=== PATIENT | male | born 1930 | race Caucasian/White ===

== ENCOUNTER 2016-07-04 07:18 | Inpatient (IN) | payer MEDICARE, BC ==
[~2016-07-04] VITALS: Ht 167.6 cm; Wt 68.2 kg
--- NOTE | ~2016-07-04 | CON ---
PATIENT'S NAME: IVETTE LOYA [facility] AGE: 85 Y [address] ROOM: [id number] [place], [place] [address] LOCATION: GPCU ADMIT DATE: 07/04/2016 Consultation DISCHARGE DATE: FAMILY PHYSICIAN: Denny Jackman MD ATTENDING PHYSICIAN: HYUN OCAMPO DATE OF CONSULTATION: 07/05/2016 REFERRING PHYSICIAN: Dr. Ocampo. REASON FOR VISIT: Wound Care visit to evaluate and treat a left groin rash. HISTORY OF PRESENT ILLNESS: This is an 85-year-old male patient who was admitted to [facility] after an elective aortogram with bilateral lower extremity runoffs. The patient had an arterial duplex and ABIs on May 31, 2016 with abnormal results. He saw his plate painter, Dr. Fletcher, on June 28. The patient also had an arteriogram with runoff which showed non-reconstructible severe peripheral vascular disease to the bilateral lower extremities. Dr. Knox was consulted and the patient underwent a left jutxb-ixn-lplu amputation today. The patient has a history of type 2 diabetes mellitus. His A1c is 8.9%. He does not wear diabetic inserts. He has a history of psoriasis and has been receiving every other month acupuncture treatments by his chiropractor to his buttocks. His reports that has significantly helped the psoriasis. He intermittently uses triamcinolone cream to this site. The patient admits to buttocks pruritus. His reports on and off redness to his groin folds. No treatment noted at home. She is not sure how long his groins have been red. The patient's heel has a linear open area and no etiology is noted. is unsure how long he has had that area. No treatment has been applied to the site. The patient is a nonsmoker. He denies intermittent claudication symptoms. He denies chest pain or shortness of breath. He denies nausea, vomiting, or diarrhea. He is complaining of severe 10/10 left leg phantom pain. PAST MEDICAL HISTORY: Severe peripheral vascular disease; type 2 diabetes mellitus; coronary artery disease; CVA; prostate cancer, receiving chemo by Dr. Beck; DVT to the left lower extremity; short-term memory loss; essential hypertension; hypothyroidism; nephrolithiasis; history of polio; urethral stricture, status post stent placement. PAST SURGICAL HISTORY: PATIENT'S NAME: IVETTE LOYA [facility] AGE: 85 Y [address] ROOM: [id number] [place], [place] [address] LOCATION: GPCU ADMIT DATE: 07/04/2016 Consultation DISCHARGE DATE: FAMILY PHYSICIAN: Denny Jackman MD ATTENDING PHYSICIAN: HYUN OCAMPO Coronary artery bypass grafting in 2010, ureteral stent, cardiac surgery, torn meniscus repair, and wrist fracture with repair. FAMILY HISTORY: The patient's mom suffered from diabetes. SOCIAL HISTORY: The patient lives with his in [place], [place]. He denies tobacco, alcohol, or illicit drug use. ALLERGIES: NO KNOWN MEDICATION ALLERGIES. CURRENT MEDICATIONS: Please refer to the medication administration record. REVIEW OF SYSTEMS: A 10-point review of systems was completed to the best of my ability and all are negative except as mentioned above in the HPI. PHYSICAL EXAMINATION: VITAL SIGNS: Temperature 98.2, pulse 59, respirations 16, blood pressure 174/70, and pulse oximetry 93%. Height 5 feet 6 inches and weight 75.9 kg. GENERAL: The patient is drowsy and complaining of pain after surgery. Alert, pale appearing. Hard of hearing. Oriented but a poor historian. HEENT: Head: Normocephalic, atraumatic. Anicteric sclerae. Oral mucosa is pink and moist. NECK: Supple. RESPIRATORY: Even and unlabored. CARDIOVASCULAR: Regular rate and rhythm. GASTROINTESTINAL: Soft and nontender. No organomegaly appreciated. EXTREMITIES: +1 pedal pulses at best to the right lower extremity. No edema noted. Capillary refill intact. Extremity is warm to touch. SKIN: Fading red rash with skin peeling to left groin. Appears dry in nature. No pustules noted. Right groin intact. Superficial pin point area to gluteal crease that is moist and pink in color. Periwound is intact. Scant serous exudate noted. No pressure ulcers noted. Scattered psoriasis plaques to buttocks. Mild in nature. Right second and third dorsal toes have small intact brown scabs. Periwound intact. Scabs are adherent to the wound bed. Right medial heel has a linear open area that measures 0.2 cm width x 2.5 cm length x 0.3 cm depth. It is difficult to visualize the wound bed but it does appear moist pink. Periwound is dry but intact. Tender to touch. No drainage noted. No evidence of deep tissue injury or ecchymosis noted. No slough to wound bed. Bilateral elbows intact. PATIENT'S NAME: IVETTE LOYA [facility] AGE: 85 Y [address] ROOM: [place] [address] LOCATION: GPCU ADMIT DATE: 07/04/2016 Consultation DISCHARGE DATE: FAMILY PHYSICIAN: Denny Jackman MD ATTENDING PHYSICIAN: HYUN OCAMPO LABORATORY DATA: White blood cell count 10.0, hemoglobin 10.2, hematocrit 32.5, platelets 185. Sodium 133, potassium 4.5, chloride 99, bicarb 26, BUN 20, creatinine 0.9, glucose 186, and hemoglobin A1c 8.9. TSH 0.671. Magnesium 1.7. ASSESSMENT AND PLAN: Again, this is an 85-year-old male patient who was admitted to [facility] with severe peripheral vascular disease. He has underwent a left AKA by Dr. Knox today. Wound Care was consulted to evaluate and treat a left groin rash. 1. Fading fungal left groin rash. Area appears to be healing. Slight skin rolling with no active pustules. We will cover the site with nystatin b.i.d. x10 days. I instructed nursing to keep area clean and dry. The patient has Johnson catheter to help with moisture control. Discussed prevention options with . 2. Gluteal crease dermal ulcer. This is not a pressure ulcer and appears to be due to moisture trapping. I will have nursing apply Aloe Sandy q.i.d. and p.r.n. incontinence as well as strict pressure redistribution measures. The patient is to be turned in bed every 2 hours. Discussed pressure ulcer prevention with . 3. Psoriasis to buttocks. Area appears mild. The patient normally receives acupuncture treatments and uses triamcinolone cream at home. We will restart triamcinolone 0.1% cream apply b.i.d. to site. 4. Right second and third dorsal toe scabs. We will leave scabs intact due to the patient's history of severe peripheral vascular disease and diabetes. These areas may be related to pressure as they are over the bony phalangeal joints. I did discuss orthotic footwear with the patient's . 5. Right medial heel linear wound. This does not have the typical presentation of a pressure ulcer or a deep tissue injury. The patient appears to have significant xerosis in this area. This area most likely started out as a crack and then opened. I will instruct nursing to apply a thick layer of Aloe Sandy b.i.d. to right heel and use a Podus footdrop boots to elevate his heel to help with pain and pressure ulcer formation. 6. Severe peripheral vascular disease. 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 The patient is to continue on Plavix and Zocor. 7. Type 2 diabetes mellitus. The patient is on sliding scale insulin. Hospitalist is managing. 8. Coronary artery disease. The patient is status post CABG. Normally sees Dr. Fletcher. Home medications have been restarted. I would like to thank Dr. Ocampo for this consultation. PATIENT'S NAME: IVETTE LOYA [facility] AGE: 85 Y [address] ROOM: [place] [address] [facility] ADMIT DATE: 07/04/2016 Consultation DISCHARGE DATE: FAMILY PHYSICIAN: Denny Jackman MD ATTENDING PHYSICIAN: HYUN OCAMPO KAVITA CURRY APRN FOR MD ROSALIA STINSON/reshma /[id number] d: 07/05/162055 t: 07/21/16 1013, CONSULTATION REPORT
--- NOTE | ~2016-07-04 | DS ---
PATIENT'S NAME: IVETTE LOYA [facility] AGE: 85 Y [address] ROOM: [place] [address] LOC[address]: [facility] ADMIT DATE: 07/04/2016 Discharge Summary DISCHARGE DATE: 07/17/2016 FAMILY PHYSICIAN: Denny Jackman MD ATTENDING PHYSICIAN: Darío Almaraz PRIMARY DIAGNOSES: 1. Ischemic left leg with ischemic ulcer and gangrenous change, status post left leg pclvb-[id number]-[id number] amputation. 2. Paroxysmal atrial fibrillation. 3. Long-term anticoagulation. 4. Acute encephalopathy with postoperative delirium. 5. Dementia, vascular type. 6. Diabetes mellitus type 2. 7. Anemia of chronic disease. 8. Essential hypertension. 9. Coronary artery disease. 10. Acute blood loss anemia. 11. Chronic constipation. OPERATIONS OR PROCEDURES: 1. Left leg AKA was performed by Dr. Knox on 07/05/2016. 2. Echocardiogram was obtained on 07/04/2016 demonstrating a preserved ejection fraction of 55%. HISTORY OF PRESENTING ILLNESS/REASON FOR ADMISSION: Please refer to the H and P dictated on 07/04/2016. HOSPITAL COURSE: The patient was admitted to the hospital as noted above with a presumptive diagnosis of ischemic left leg. He was determined to have critical ischemia and a gangrenous ulcer. Operative intervention was recommended by Dr. Knox. This was performed on 07/05/2016 as outlined above. Postoperatively, he developed acute encephalopathy and delirium. This was felt to be multifactorial. His medication regimen was streamlined, but he did require some atypical antipsychotic treatment for management of extreme agitation and aggressive outbursts. Eventually these subsided. He continued to receive supportive cares. His oral intake was poor, but he continued to receive some careful IV fluid hydration therapy. Blood sugars were managed with sliding scale insulin and his oral hypoglycemic regimen was held. His heart rates were suboptimally controlled and his medical regimen was PATIENT'S NAME: IVETTE LOYA [facility] AGE: 85 Y [address] ROOM: [place] [address] LOCATION: [facility] ADMIT DATE: 07/04/2016 Discharge Summary DISCHARGE DATE: 07/17/2016 FAMILY PHYSICIAN: Denny Jackman MD ATTENDING PHYSICIAN: Darío Almaraz adjusted. He was restarted on anticoagulation therapy and tolerated that well. Postoperative anemia, remained stable. He received physical therapy and occupational therapy for strengthening rehabilitation, but his clinical progress was slow. It was felt that he would not be able to return home and not able to tolerate an inpatient rehab setting because of his underlying dementia and slow progress. It was recommended that he pursue a longterm care. Eventually, arrangements were made for him to transferred to [facility] in [place]. DISCHARGE INSTRUCTIONS: DIET: Diabetic prudent 2000 calorie per day as tolerated. ACTIVITY: As tolerated. MEDICATIONS: 1. Acarbose 25 mg p.o. b.i.d. and 50 mg p.o. q. noon. 2. Acetaminophen 650 mg p.o. q.6 hours. 3. Vitamin C 500 mg p.o. b.i.d. 4. Atenolol 12.5 mg p.o. b.i.d. 5. Calcium carbonate with vitamin D 500 mg p.o. b.i.d. 6. Plavix 75 mg p.o. daily. 7. Colace 100 mg p.o. b.i.d. 8. Iron 325 mg p.o. daily. 9. Insulin NovoLog per sliding scale with meals. 10. Levemir insulin 20 units subcu at bedtime. 11. Levothyroxine 100 mcg p.o. daily. 12. Lisinopril 20 mg p.o. daily. 13. Mag oxide 400 mg p.o. b.i.d. 14. Multivitamin daily. 15. Fish oil 1000 mg two caps p.o. daily. 16. Protonix 20 mg p.o. at bedtime. 17. Seroquel 6.25 mg p.o. q.a.m. and 12.5 mg p.o. q.p.m. 18. Simvastatin 40 mg p.o. at bedtime. 19. Triamcinolone cream applied topically b.i.d. 20. Coumadin 2 mg p.o. daily. 21. [place] 5/325 one tablet p.o. q.2 hours p.r.n. breakthrough pain. 22. Dulcolax 10 mg MO daily p.r.n. 23. Nitroglycerin 0.4 mg sublingually p.r.n. FOLLOWUP: He will have follow up with Dr. Ross Fletcher, treasury director in 2 weeks in [place]. He will have follow up with Dr. Knox in 2 weeks in [place]. Ongoing follow up with Dr. Denny Jackman at the [facility]. PATIENT'S NAME: IVETTE LOYA [facility] AGE: 85 Y [address] ROOM: [place] [address] LOCATION: [facility] ADMIT DATE: 07/04/2016 Discharge Summary DISCHARGE DATE: 07/17/2016 FAMILY PHYSICIAN: Denny Jackman MD ATTENDING PHYSICIAN: Darío Almaraz CONDITION ON DISCHARGE: Fair. Total time spent on discharge process is 45 minutes. MD BRIT MEMBRENO/modl /[id number] d: 07/18/16 1127 t: 07/18/16 1724, DISCHARGE SUMMARY
--- NOTE | ~2016-07-04 | OR ---
PATIENT'S NAME: IVETTE LOYA [facility] AGE: 85 Y [address] ROOM: [place] [address] LOCATION: [facility] ADMIT DATE: 07/04/2016 OR/Procedure Report DISCHARGE DATE: FAMILY PHYSICIAN: Denny Jackman MD ATTENDING PHYSICIAN: HYUN OCAMPO SURGEON: Dequan Rizo MD GLASS ENAMEL MIXER: DATE OF PROCEDURE: 07/05/2016 PREOPERATIVE DIAGNOSIS: Ischemic left leg. POSTOPERATIVE DIAGNOSIS: Ischemic left leg. PROCEDURE PERFORMED: Left above-knee amputation. FACILITIES CUSTODIAN: NILE Anaya ANESTHESIA: General. ESTIMATED FLUID LOSS: 700 mL. OPERATIVE FINDINGS: Good, clean, healthy flaps at the end of the case. DESCRIPTION OF PROCEDURE: The patient was brought to the operating room, placed supine on the operating table, and prepped and draped in a sterile manner. Preoperative time-out was performed. The patient had placement of a Johnson catheter as well as a tourniquet for hemostasis. We made a standard fishmouth incision 3 fingerbreadths above the patella. We transected all the muscle and soft tissue using Bovie cautery. All blood vessels were suture ligated with 2-0 or 3-0 Vicryl suture ligatures. We identified the neurovascular bundle, the superficial femoral artery, and superficial femoral vein. Those were suture ligated with 2-0 Vicryl. We then removed the soft tissue from the bone using a rongeur. We then transected the bone using a reticulating saw. We copiously irrigated the wound. We took our tourniquet down and achieved hemostasis using Bovie cautery and any further suture ligations that we required. We then reapproximated the anterior and posterior flaps using 2-0 Vicryl. The skin was then closed with elizabeth. The patient tolerated the procedure well and was transferred to the recovery room and then back to the floor. DEQUAN RIZO MD PATIENT'S NAME: IVETTE LOYA [facility] AGE: 85 Y [address] ROOM: [place] [address] LOCATION: [facility] ADMIT DATE: 07/04/2016 OR/Procedure Report DISCHARGE DATE: FAMILY PHYSICIAN: Denny Jackman MD ATTENDING PHYSICIAN: HYUN OCAMPO/reshma /[id number] d: 07/05/16 1117 t: 07/09/16 1302, OPERATIVE SUMMARY
--- NOTE | ~2016-07-04 | HP ---
PATIENT'S NAME: IVETTE LOYA [facility] AGE: 85 Y [address] ROOM: [id number] [place], [place] [address] LOCATION: GPCU ADMIT DATE: 07/04/2016 History & Physical DISCHARGE DATE: FAMILY PHYSICIAN: Denny Jackman MD ATTENDING PHYSICIAN: HYUN OCAMPO CHIEF COMPLAINT: Bilateral lower extremity tenderness and decreased sensation, more on the left than the right. HISTORY OF PRESENT ILLNESS: This is an 85-year-old male who says that last year in December 2015 he accidentally injured his left big toe when he was walking out from the [employer] where he almost missed a step and hit his left big toe against the ground. He did not go see any physician for that. He has noticed that his left big toe has become tender and sometimes swollen and is becoming discolored. This happened last year, and he did not look for any medical attention, and he was recently seen by Dr. Fletcher for office followup that was on June 28, 2016, for his peripheral vascular disease. The patient was scheduled for an elective abdominal aortogram with runoffs today on July 04, 2016. The official report is pending, and Dr. Knox from Vascular Surgery has already been consulted and that the plan will be to have a left above-knee amputation tomorrow. Other than that, upon my further interview, the patient denies any chest pain, shortness of breath, cough, palpitation, fever, chills, presyncope, syncope, diaphoresis, nausea, vomiting, abdominal pain, diarrhea, constipation, or any other symptoms. He also denies any recent sick contact or any recent illness. He did mention that his bilateral lower extremities are becoming more tender to touch and also decreasing in sensation. The left lower extremity is worse than the right. He also complained of some cold sensation in both bilateral lower extremities. At baseline, he is independent of all activities of daily living, and his METS score is more than 4 at baseline. REVIEW OF SYSTEMS: As mentioned in the history of present illness. All other systems review negative except for those mentioned in history of present illness. PAST MEDICAL HISTORY: 1. Coronary artery disease, status post bypass surgery back in 2000 in [place]. 2. Peripheral vascular disease. 3. Diabetes mellitus type 2. 4. History of cerebrovascular accident back in 2004 without any neurological deficit. PATIENT'S NAME: IVETTE LOYA [facility] AGE: 85 Y [address] ROOM: [id number] [place], [place] [address] LOCATION: [facility] ADMIT DATE: 07/04/2016 History & Physical DISCHARGE DATE: FAMILY PHYSICIAN: Denny Jackman MD ATTENDING PHYSICIAN: HYUN OCAMPO 5. History of prostate cancer, followed by Dr. Beck. 6. History of DVT of the left leg back in 1986. 7. 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 8. Hypertension. 9. Hypothyroidism. 10. History of polio. 11. History of a urethral stricture with status post stent placement in the past. 12. History of kidney stone in the past. ALLERGIES: NO KNOWN DRUG ALLERGIES ACCORDING TO THE PATIENT AND THE PATIENT'S . HOME MEDICATIONS: 1. Acarbose 25 mg p.o. b.i.d. 2. Acarbose 50 mg p.o. at noon. 3. Atenolol 25 mg p.o. b.i.d. 4. Plavix 75 mg p.o. daily. 5. Glipizide 20 mg p.o. b.i.d. 6. Levothyroxine 100 mcg p.o. daily before breakfast. 7. Lisinopril 20 mg p.o. daily. 8. Magnesium oxide 400 mg p.o. b.i.d. 9. Metformin 500 mg p.o. daily in the morning. 10. Metformin 1000 mg p.o. b.i.d. 11. Multivitamin 1 tablet p.o. daily. 12. Fish oil 2000 mg p.o. daily. 13. Omeprazole 20 mg p.o. daily at bedtime. 14. Simvastatin 40 mg p.o. at bedtime. SOCIAL HISTORY: The patient denies any alcohol or illegal drug or cigarette use. FAMILY HISTORY: Both parents from old age. The patient could not remember from what cause. PAST SURGICAL HISTORY: 1. Status post bypass surgery in the past. 2. Status post ureteral stent placement in the past. 3. Status post cataract surgery in the right eye. 4. Status post fracture with wrist repair in the past. 5. Status post torn meniscus in the knee in the past. PHYSICAL EXAMINATION: VITAL SIGNS: At the time of my dictation, temperature 98.6, heart rate 63, PATIENT'S NAME: IVETTE LOYA [facility] AGE: 85 Y [address] ROOM: [id number] [place], [place] [address] LOCATION: [facility] ADMIT DATE: 07/04/2016 History & Physical DISCHARGE DATE: FAMILY PHYSICIAN: Denny Jackman MD ATTENDING PHYSICIAN: HYUN OCAMPO respirations 18, blood pressure 115/52, saturation 98% on room air. Pain 2/10 in bilateral lower extremities in the feet. GENERAL APPEARANCE: Alert and oriented x3, in no acute distress. HEENT: Pupils are equally round and reactive to light. Anicteric sclerae. Extraocular muscles are intact. Nasal turbinates are normal bilaterally. Moist oral mucosa. No oral thrush. NECK: No JVD. No cervical lymphadenopathy. CARDIOVASCULAR: Regular rate and rhythm. Normal S1, S2. No murmur. No rubs, no gallops. RESPIRATORY: Clear to auscultation. Chest wall nontender to palpation. ABDOMEN: Soft, nontender, nondistended, normal bowel sounds, no hepatosplenomegaly. EXTREMITIES: No edema in upper or lower extremities. On the left foot, he has a necrotic and a gangrene looking big toe. On the right foot, he has a small superficial ulcer that do not look infected in the second and third toes. No active purulent drainage. Dorsalis pedis pulses and posterior tibialis pulses bilaterally are very weak almost undetectable on Doppler. No cyanosis. The bilateral feet somewhat cold to touch. They are pale in color, but they are not cyanotic. NEUROLOGIC: Sensation is somewhat a little bit decreased in both legs. Otherwise, nonfocal. SKIN: As mentioned in the extremity section. MUSCULOSKELETAL: Range of motion intact. LABORATORY DATA: White blood cell 12.4, hemoglobin 10.5, hematocrit 32.3, MCV 89, platelet 192. Glucose 225, BUN 20, creatinine 1.0, sodium 136, potassium 4.2, chloride 99, CO2 of 28, calcium 8.4, GFR more than 60. A1c 8.9. INR 1.1. TSH 0.671. IMAGING STUDIES: Chest x-ray is currently being performed. Saturation 98% on room air. Lungs are clear to auscultation. Official reading is pending. EKG: EKG on June 28, 2016, shows sinus rhythm, heart rate of 66 beats per minute without any acute ischemic finding. ASSESSMENT AND PLAN: 1. Severe peripheral vascular disease in bilateral lower extremities: The patient will be undergoing left above the knee amputation tomorrow. N.p.o. after midnight. IV fluids for hydration after midnight. Pain control with IV morphine p.r.n. Antibiotics per Vascular Surgery, currently on cefazolin. Further plan depends on clinical course. Follow up with Vascular Surgery tomorrow after surgery. The patient was already seen by camera systems engineer, Dr. Fletcher, in the office back on June 28, 2016. EKG was performed which showed sinus rhythm without any acute PATIENT'S NAME: IVETTE LOYA [facility] AGE: 85 Y [address] ROOM: [address] [address] LOCATION: GPCU ADMIT DATE: 07/04/2016 History & Physical DISCHARGE DATE: FAMILY PHYSICIAN: Denny Jackman MD ATTENDING PHYSICIAN: HYUN OCAMPO ischemic changes. The patient is doing well. The patient does not have any contraindication for surgery. The patient's METS score is more than 4. He does not currently have any active cardiac condition that will prevent him from undergoing surgery. Chest x-ray reading is pending. On his physical examination, the patient's lungs are clear. He denies any dyspnea and saturating at 98% on room air. Blood type and screen. 2. Regarding his history of coronary artery disease, status post bypass surgery in the past: Doing well. No chest pain. No acute ischemia on EKG. Currently, the patient is on aspirin, full dose, we will continue that. Regarding Plavix, will be deferred to Vascular Surgery. I spoke to Sangita and for now continue aspirin full dose, and tomorrow after surgery, Vascular Surgery can decide about continuing both or just use aspirin or just use Plavix. 3. Regarding his diabetes type 2: We will check A1c and also hold metformin and hold the acarbose and also hold glipizide. In the hospital, we will continue with the insulin sliding scale low dose a.c. h.s. aspart and titrate as necessary. When he becomes n.p.o. overnight, we will switch him to subcutaneous regular insulin q.6 hours low dose. 4. Regarding his coronary artery disease, status post CABG in 2000: No active issue. Continue current medication which includes aspirin full dose and beta-kolton atenolol 25 mg p.o. b.i.d. with holding parameters and Plavix as mentioned before will be readdressed by Vascular Surgery tomorrow after surgery. Continue lisinopril 20 mg p.o. daily and Zocor 40 mg p.o. daily. 5. History of ischemic cerebrovascular accident back in 2004: No active issue. No neurological deficit. 6. Hypertension: Continue atenolol with holding parameters. Currently, well controlled. 7. Hypothyroidism: We will check a TSH. We will continue the home dose of levothyroxine 100 mcg p.o. daily and titrate depending on the TSH level. 8. Deep venous thrombosis prophylaxis: We will start the patient on heparin subcu 5000 units t.i.d. 9. The patient can have a diabetic diet and n.p.o. after midnight. 10. Further plan depends on clinical course. Time spent on the day of admission 35 minutes including chart review, examining the patient, interviewing the patient, addressing all the questions and concerns that the patient had, and going over the plan of care with the patient and the patient's . HYUN OCAMPO MD CC/modl PATIENT'S NAME: IVETTE LOYA [facility] AGE: 85 Y [address] ROOM: [place] [address] LOCATION: [facility] ADMIT DATE: 07/04/2016 History & Physical DISCHARGE DATE: FAMILY PHYSICIAN: Denny Jackman MD ATTENDING PHYSICIAN: HYUN OCAMPO /[id number] D: [id number] T: 450 HISTORY & PHYSICAL
--- NOTE | ~2016-07-04 | CON ---
PATIENT'S NAME: IVETTE LOYA [facility] AGE: 85 Y [address] ROOM: [place] [address] LOCATION: [facility] ADMIT DATE: 07/04/2016 Consultation DISCHARGE DATE: FAMILY PHYSICIAN: Denny Jackman MD ATTENDING PHYSICIAN: HYUN OCAMPO DATE OF CONSULTATION: 07/08/2016 PALLIATIVE CARE CONSULTATION LOCATION: Room [facility], [facility]. REFERRING PHYSICIAN: Candy Huang MD REASON FOR CONSULTATION: This is a Palliative Care referral for goals of care and patient and family support. HISTORY OF PRESENT ILLNESS: This 85-year-old frail male was admitted on 07/04/2016 with a necrotic left toe and severe peripheral vascular disease. In December 2015, he accidentally injured his left big toe while walking out of [employer], he missed the step and injured his left big toe. He did not go see a physician, and toe become tender and more swollen. He presented with a necrotic left great toe and was seen by Dr. Knox, had a left ekdem-eos-alrm amputation done and has become more delirious. No bowel movements in 7 days, and decreased appetite. Not oriented to time, place, or date. Does recognize his , Amaris. No nausea or vomiting. Does complain of some shortness of breath. States he does not have pain, but when the patient is repositioned screams out in pain in the left stump. Appetite, he has been refusing food and all medications this morning. Has a productive cough of grayish yellow phlegm, large amount. No nausea or vomiting noted. PAST MEDICAL HISTORY: 1. Coronary artery disease status post bypass surgery in 2000 in [place]. 2. Severe peripheral vascular disease. 3. Diabetes mellitus, type 2. 4. History of a cardiovascular accident in 2004 without any neurological deficits. 5. History of prostate cancer followed by Dr. Beck and has been taking some shots in his abdomen per his for his prostate cancer. 6. History of DVT, left leg back in 1986. PATIENT'S NAME: IVETTE LOYA [facility] AGE: 85 Y [address] ROOM: [place] [address] LOCATION: [facility] ADMIT DATE: 07/04/2016 Consultation DISCHARGE DATE: FAMILY PHYSICIAN: Denny Jackman MD ATTENDING PHYSICIAN: HYUN OCAMPO 7. 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 8. Mild dementia. 9. Hypertension. 10. Hypothyroidism. 11. History of polio. 12. History of urethral stricture status post stent placement in the past. 13. History of kidney stone in the past. ALLERGIES: NO KNOWN ALLERGIES. CURRENT MEDICATIONS: 1. Fish oil 2000 mg daily. 2. Synthroid 100 mcg daily in the a.m. 3. Mag-Ox 400 mg b.i.d. 4. Plavix 75 mg daily. 5. Precose 25 mg b.i.d. and 50 mg at noon. 6. Zestril 20 mg daily. 7. Protonix 20 mg at bedtime. 8. Seroquel 25 mg at bedtime. 9. Tenormin 25 mg b.i.d. 10. Multivitamin 1 tablet daily. 11. Zocor 40 mg daily. 12. Heparin 5000 units subcutaneous t.i.d. 13. Levemir 10 units subcutaneous at bedtime. 14. NovoLog moderate sliding scale. 15. Mycostatin ointment b.i.d. to groin. 16. Triacet 0.1% cream b.i.d. to affected area. 17. P.r.n. medications: Haldol 1 mg IM every 6 hours. 18. Morphine 2 IV every 5 minutes p.r.n. 19. Zofran 4 mg IV every 6 hours. 20. Dilaudid 0.5 to 1 mg every 6 hours. 21. Benadryl 25 mg p.o. at bedtime p.r.n. sleeplessness. 22. Colace 100 mg b.i.d. p.r.n. 23. Hazelton 5/325, 1 to 2 tablets every 4 hours p.r.n. 24. Tylenol 650 mg every 4 hours p.r.n. 25. Nitrostat 0.4 mg sublingual p.r.n. chest pain. FAMILY HISTORY: Parents at old age, unknown cause. PAST SURGICAL HISTORY: 1. Coronary artery bypass graft. 2. Urethral stent. 3. Cardiac surgery. PATIENT'S NAME: IVETTE LOYA [facility] AGE: 85 Y [address] ROOM: [place] [id number] LOCATION: [facility] ADMIT DATE: 07/04/2016 Consultation DISCHARGE DATE: FAMILY PHYSICIAN: Denny Jackman MD ATTENDING PHYSICIAN: HYUN OCAMPO 4. Fracture of wrist repair. 5. Torn meniscus repair. 6. Left oytrq-own-codo amputation. REVIEW OF SYSTEMS: Review of systems was done and is negative except as mentioned in the HPI and listed below: GASTROINTESTINAL: Last bowel movement was on 07/03/2016. Suppository was given yesterday with little or no results. Appetite is poor, taking only bites. GENITOURINARY: He is incontinent. PSYCHIATRY: He does have a history of mild dementia, forgetfulness. Had been declining over the last few months per his . She had to help him get dressed, but he was able to still drive a car and walk and feed himself. Positive for fatigue and loss of energy. PHYSICAL EXAMINATION: GENERAL APPEARANCE: This is an 85-year-old frail male, confused, and lying in bed. VITAL SIGNS: Temperature 98.5, pulse is 86, respirations 16, blood pressure 134/65, and O2 sats 96%. He is 5 foot 6 inches and weighs 167 pounds with a BMI of 27.0. SKIN: Warm and dry. Color pale. Reddened rash in the groin area. HEENT: Head; normocephalic and atraumatic. Sclerae are nonicteric. Conjunctivae are pale, pink. Mouth is pink and dry. RESPIRATORY: Clear to auscultation. Rhonchi bilaterally. Breath sounds even and regular. Coughing up thick phlegm x2, large amount. CARDIAC: S1 and S2 without murmurs or bruits. No lower extremity edema. ABDOMEN: Soft. Positive bowel tones. No hepatosplenomegaly. NEUROLOGIC: Confused to date, time, and place. Does respond to commands. MUSCULOSKELETAL: Left nfffc-msp-nvdk amputation, elizabeth are intact. Incision has some erythema, well healing. No exudate. PALLIATIVE PERFORMANCE SCALE: He is about 30% bed bound, unable to do any activity. Total care, intake is minimal to sips, and level of consciousness is confused and irritable. LABORATORY DATA: Sodium 132, potassium 4.2, BUN 21, creatinine 0.9, and blood sugar is 230. GFR is 60. ProBNP is 7041. HBA1c is 8.9. GFR is greater than 60. White count is 13.8, hemoglobin 10.2, hematocrit 32.3, and 334,000 platelets. IMPRESSION: 1. Pain in the left jahxj-itn-pcgf amputation. 2. Constipation. 3. Dysphagia. PATIENT'S NAME: IVETTE LOYA [facility] AGE: 85 Y [address] ROOM: [place] [address] LOCATION: [facility] ADMIT DATE: 07/04/2016 Consultation DISCHARGE DATE: FAMILY PHYSICIAN: Denny Jackman MD ATTENDING PHYSICIAN: HYUN OCAMPO 4. Delirium/dementia. PLAN: 1. Discussion of chronic condition. Met with Amaris, discussed the patient's overall condition. More confusion after the amputation, not eating. Not taking his medicines. has a fair understanding of the patient's overall condition. Notes, she cannot care for him. Notes that patient needs to have symptoms more controlled before he can go back to the jail in [place]. Discussion of goals:. a. Help with confusion. b. Control pain. c. Help with constipation. d. Try to get the patient better to get back to jail closer to home. lives two blocks from jail. 2. Code status and advance directives: The patient is currently a full code. Does have a copy of advance directives naming and her three sons as power of attorneys. 3. Discussion of benefits, burdens with coding patient with dementia and elderly, and overall condition. has talked with her son on wishes. The patient's living will states he would not want to be kept alive on life-sustaining treatment and states they have both discussed this in the past. They would like to continue with aggressive treatments but not do the CPR and restart the heart or be put on a ventilator if condition declines. 4. Discussion of artificial nutrition and with patient's confusion may not be a benefit to patient, may pull out tubes in his confused state if attempted to use a Dobbhoff. Discussed the burdens. Currently, patient is able to eat and swallow especially in a very upright position at home, he had to sit very upright due to his hiatal hernia per his . She is thinking that family would not want feeding tubes if condition decline further. RECOMMENDATIONS: 1. For pain. Schedule Tylenol 650 mg p.o., IV, or rectal every 4 hours. 2. Has morphine and Dilaudid ordered for pain. May consider decreasing hydromorphone dose. Currently is 0.5 to 1 mg which is a prettylarge dose for an 85-year-old. May consider decreasing that down to 0.2 to 0.3 mg. 3. Does have morphine 2 mg IV and Hazelton 5/325, 1 to 2 every 4 hours for more mild pain. 4. Constipation. Has not had a bowel movement since the . Dulcolax was given yesterday with no BM. Unsure if Fleet enema was given. May need another Dulcolax and Fleet enema if no bowel movement today. May consider scheduling Colace 100 mg b.i.d. PATIENT'S NAME: IVETTE LOYA [facility] AGE: 85 Y [address] ROOM: [place] [address] LOCATION: [facility] ADMIT DATE: 07/04/2016 Consultation DISCHARGE DATE: FAMILY PHYSICIAN: Denny Jackman MD ATTENDING PHYSICIAN: HYUN OCAMPO 5. For weakness and fatigue. Physical Therapy is on board. May need to get up in the chair for meals to help with dysphagia and strengthening. 6. Delirium and dementia. a. Nonpharmacological treatments. at bedside. Natural light. Activity up in the chair. PT. Re-orient often, at bedside. Have glasses and hearing aids readily available. Pharm: Seroquel 25 mg at bedtime scheduled. Haldol 1 mg IV every 6 hours for severe agitation. May consider adding Seroquel 12.5 mg every 12 hours p.r.n. agitation or confusion. Spiritual needs and coping. Emotional support given to . No spiritual needs at this time. Total time was 65 minutes, with 65 minutes for counseling and coordination of care. Thank you for allowing me to assist this patient and family. ARTHUR DELEON NP FOR MD JUDY PEREIRA/reshma /[id number] d: 07/11/16 2159 t: 07/19/16 1200, CONSULTATION REPORT
--- NOTE | ~2016-07-04 | HP ---
PATIENT'S NAME: IVETTE LOYA [facility] AGE: 85 Y [address] ROOM: [address] [place], [place] [address] [facility] ADMIT DATE: 07/04/2016 History & Physical DISCHARGE DATE: FAMILY PHYSICIAN: Denny Jackman MD ATTENDING PHYSICIAN: HYUN OCAMPO ADDENDUM: The patient already had bilateral duplex venous lower extremity ultrasound performed in May 2016 showed no evidence of deep vein thrombosis of the lower extremities. The patient also had ankle brachial index test performed in May 2016 and showed moderately decreased perfusion of the right lower extremity, noted at the dorsalis pedis artery level. This exam reveals moderately decreased perfusion of the left lower extremity noted at the posterior tibial artery level. The patient had an arterial lower extremity study report in May 2016 showed moderately decreased right resting ankle-brachial index and moderately decreased left resting ankle-brachial index. Arterial lower extremity study report in May 2016 also revealed no hemodynamically significant stenosis identified in the right lower extremity arterial system. No hemodynamically significant stenosis identified in the left lower extremity arterial system; however, infrapopliteal disease is present bilaterally. This exam reveals moderately decreased perfusion of the right lower extremity noted at the dorsalis pedis artery level and posterior tibial level. This exam reveals moderately decreased perfusion of the left lower extremity, noted at the posterior tibial artery and dorsalis pedis level. HYUN OCAMPO MD CC/modl /[id number] D: [id number] T: [id number] HISTORY & PHYSICAL
--- NOTE | ~2016-07-04 | OR ---
PATIENT'S NAME: IVETTE LOYA [facility] AGE: 85 Y [address] ROOM: [place] [address] LOCATION: [facility] ADMIT DATE: 07/05/2016 OR/Procedure Report DISCHARGE DATE: 07/17/2016 FAMILY PHYSICIAN: Denny Jackman MD ATTENDING PHYSICIAN: Darío Almaraz SURGEON: Ross Fletcher MD RUNNING RIGGER: DATE OF PROCEDURE: 07/04/2016 INDICATION: Nonhealing left ulcer of the foot Markedly abnormal bilateral KARL's PROCEDURE: Abdominal aortogram with long leg runoffs PROCEDURE: A 6F sheath was advanced to the right femoral artery. A 6F tennis racket was used for abdominal aortography as long leg runoffs. FINDINGS: Single renal arterial supplied bilaterally with left renal artery stenosis of approximately 70%. The infrarenal aorta shows moderate atheromatous atheroma. The right iliac artery is patent. Right internal iliac artery is patent. Right external iliac artery is patent. The right profundus is patent. The right superficial femoral artery is patent throughout its course. Popliteal artery shows mild luminal narrowing to approximately 30%. Anterior tibial artery shows a proximal 100% occlusion. TP trunk is 100% occluded. The posterior tibial artery is 100% occluded. No complete reconstitution is noted distally. The left iliac artery is large in caliber and shows no significant stenosis. Left internal iliac is patent. Left external iliac is patent. The left profunda is patent. PATIENT'S NAME: IVETTE LOYA [facility] AGE: 85 Y [address] ROOM: [place] [address] LOCATION: [facility] ADMIT DATE: 07/05/2016 OR/Procedure Report DISCHARGE DATE: 07/17/2016 FAMILY PHYSICIAN: Denny Jackman MD ATTENDING PHYSICIAN: Darío Almaraz Left superficial femoral artery is patent throughout its course. Left popliteal is patent throughout its course. Anterior tibial artery shows a proximal 100% occlusion. Peroneal artery is 100% occluded in the proximal course. Left posterior tibial artery is 100% occluded in the proximal course. There is reconstitution noted of the posterior tibial as well as the peroneal artery at the level of the ankle. CONCLUSION: 1. Single renal arterials supplied bilaterally. 2. Tlei-qo-qtypmfuk atheromatous debris noted in the infrarenal aorta. 3. Patent inflow anatomy on the bilateral sides. 4. Infragenicular severe stenosis bilaterally. 5. Recommend vascular surgery consultation for consideration of popliteal to tibial bypass surgery. MD AWILDA MCKEON/magdy /[id number] d: 08/03/16 1516 t: 08/29/16 0807, OPERATIVE SUMMARY
--- NOTE | ~2016-07-04 | CON ---
PATIENT'S NAME: JC LOYA [facility] AGE: 85 Y [address] ROOM: [address] [address] LOCATION: GPCU ADMIT DATE: 07/04/2016 Consultation DISCHARGE DATE: FAMILY PHYSICIAN: Denny Jackman MD ATTENDING PHYSICIAN: HYUN OCAMPO DATE OF CONSULTATION: 07/04/2016 REFERRING PHYSICIAN: BRYANT KNOX MD REASON FOR CONSULT: Necrotic left great toe with severe peripheral vascular disease. HISTORY OF PRESENT ILLNESS: This is an 85-year-old male admitted to [facility] after an elective aortogram with bilateral lower extremity runoffs. The patient reports that in February, he was leaving scientologist, missed a step, and injured his left great toe on the ground. Since then, the left great toe has turned black. The patient also has necrotic areas to the dorsal side of 2 right toes. He reports an increase in bilateral foot coolness and decreased sensation. An arterial duplex and ABIs were obtained on May 31, 2016, with abnormal results. He then saw Dr. Fletcher in office on June 28 regarding his peripheral vascular disease, and an aortogram with runoff was performed today by Dr. Fletcher revealing nonreconstructible severe peripheral vascular disease to bilateral lower extremities with no large vessel runoff past either knees. Therefore, Dr. Knox is consulted for left [id number]-auhp amputation for necrotic left great toe. Jc denies any nicotine history. His history is positive for diabetes mellitus, type 2. He denies any fevers or chills. He denies any claudication. He reports erythema to the periwound and pain to left great toe. He denies any chest pain, lightheadedness, shortness of breath, nausea, vomiting, diarrhea, or abdominal pain. PAST MEDICAL HISTORY: 1. Coronary artery disease, status post CABG in 2010. 2. Peripheral vascular disease. 3. Diabetes mellitus, type 2. 4. Cerebrovascular accident in 2004. 5. Prostate cancer. 6. DVT to left leg. 7. Short-term memory impairment. 8. Hypertension. 9. Hypothyroidism. 10. History of polio. 11. Urethral stricture, status post stent placement. 12. Kidney stones. PATIENT'S NAME: JC LOYA [facility] AGE: 85 Y [address] ROOM: [id number] [place], [place] [id number] LOCATION: GPCU ADMIT DATE: 07/04/2016 Consultation DISCHARGE DATE: FAMILY PHYSICIAN: Denny Jackman MD ATTENDING PHYSICIAN: HYUN OCAMPO PAST SURGICAL HISTORY: 1. Coronary artery bypass graft. 2. Ureteral stent. 3. Cataract surgery. 4. Fracture, with wrist repair. 5. Torn meniscus repair. FAMILY HISTORY: The patient reports that his parents from old age, and he cannot recall the cause. SOCIAL HISTORY: The patient denies any nicotine use, any alcohol use, or any illicit drug use. CURRENT MEDICATIONS: See medication reconciliation. ALLERGIES: NO KNOWN ALLERGIES. REVIEW OF SYSTEMS: A 10-point review of systems was completed, positives addressed in the History of Present Illness. PHYSICAL EXAMINATION: VITAL SIGNS: Temperature 98.6, heart rate 63, respiratory rate 18, blood pressure 115/52, and oxygen saturations is 92%. GENERAL: The patient is in no acute distress. He is alert and oriented x3, but forgetful at times. The patient is hard of hearing. SKIN: Overall, warm and pink without rashes. HEENT: Head: Normocephalic and atraumatic. Ears without drainage. Eyes: Sclerae are white. Conjunctivae pink. Extraocular movements intact. PERRLA. Nose without drainage. Throat: Oral mucosa pink and moist. No exudate or erythema. NECK: Without adenopathy. No evidence of JVD. No carotid bruit. Trachea midline. RESPIRATORY: Clear to auscultation bilaterally. Even and unlabored breath sounds. CARDIOVASCULAR: Regular rate and rhythm. No murmur or extra sounds. GASTROINTESTINAL: Bowel sounds active x4. Soft and nontender. No organomegaly. EXTREMITIES: The left great toe is necrotic and gangrenous with no foul odor. The patient does have small necrotic areas to the dorsal of 2 right toes. I am unable to palpate dorsalis pedis or posterior tibialis bilaterally. The patient has erythema to the periwound of the left great toe. Bilateral lower PATIENT'S NAME: JC LOYA [facility] AGE: 85 Y [address] ROOM: [address] [address] LOCATION: GPCU ADMIT DATE: 07/04/2016 Consultation DISCHARGE DATE: FAMILY PHYSICIAN: Denny Jackman MD ATTENDING PHYSICIAN: HYUN OCAMPO extremities are cool to touch, though there is no cyanosis. Active range of motion throughout. NEUROLOGICAL: No focal deficits. Strength equal bilaterally at 5/5. Sensation diminished to lower extremities. LABORATORY DATA: Chemistry: Sodium is 136, potassium 4.2, chloride 99, CO2 of 28, BUN 20, creatinine 1, and glucose 225. Hematology: White blood cell count 12.4, hemoglobin 10.5, hematocrit 32.3, and platelets 132. IMPRESSION AND PLAN: 1. Severe peripheral arterial disease with ischemic ulcer to the left lower extremity. Aortogram today with bilateral runoff reveals severe non- reconstructible disease to bilateral lower extremities with no large vessel runoff past either knee. The patient has gangrene to his left great toe which will require left ynuxn-tby-arik amputation with Dr. Knox tomorrow as this will not heal without blood flow. The right extremity will need to be monitored closely for nonhealing wounds, and the patient needs to avoid trauma to this extremity. The patient is to be n.p.o. at midnight, and Ancef has been ordered for OR. Plan for left above-knee amputation on July 05, 2016. Dr. Knox has discussed risks and benefits with both the patient and his , and they verbalized understanding of this plan. The patient is to continue Plavix and Zocor. 2. Coronary artery disease. The patient is status post CABG. This is stable, with no chest pain. The patient was recently seen by Dr. Fletcher, and EKG with no significant or acute changes. Home medications have been continued. 3. Diabetes mellitus, type 2. The patient is on sliding scale insulin. Accu-Cheks have been ordered, and the patient is on a diabetic diet. Thank you for your consultation and for allowing us to participate in the care of this patient. JEANNIE SUMNER APRN FOR BRYANT KNOX MD TO/modl /[id number] d: 07/05/16 1048 t: 03/10/17 1011, CONSULTATION REPORT
--- NOTE | ~2016-07-04 | ECHO ---
Transthoracic Echocardiography Report (TTE) Demographics Patient Name IVETTE LOYA Date of Study 07/13/2016 Patient Number [id number] Visit Number [id number] Date of 1930 Room Number G3215 Gender Male Number Age 85 year(s) Referring Augustina Oh MD Entry Level Software Developer Drew Tovar Physician Danielito Starks MD Physician Interpreting Danielito Craig Supervisor Shuttle Veneering Physician Supervising Ordering Danielito Craig MD/MLP Physician Nurse Stress Outdoor Adventure Guides Conclusions Contractility Score Summary Normal Left Ventricular contractility was noted. Summary Patient was confused and combative and continued to pull EKG leads off. Technically difficult study. The estimated left ventricular ejection fraction is 55%. Moderate concentric left ventricular hypertrophy. Diastolic function indeterminate due to patient's arrhythmia. Mildly reduced right ventricular function. The left atrium is moderately dilated by LA volume index measurement. The right atrium is mildly dilated. IVC measures 1.71 cm with inspiratory collapse. No evidence of pericardial effusion. No significant valvular abnormalities. Procedure Type of Study TTE procedure:2D Echocardiogram, M-Mode, Doppler , Color Doppler. Procedure Date Date: 07/13/2016 Start: 07:16 AM Study Location: Inpatient Portable Technical Quality: Adequate visualization Indications:Atrial fibrillation and Hypotension. Appropriate Use Criteria: 9 Patient Status: Routine BP: 88/33 mmHg Allergies - No known allergies. M-Mode/2D Measurements LV Diastolic Dimension: 4.33 cm LV Systolic Dimension: 3.18 cm LV Septum Diastolic: 1.43 cm LV PW Diastolic: 1.49 cm AO Root Dimension: 3.1 cm LA Dimension: 3.1 cm RV Diastolic Dimension: 2.95 cm LA volume: 63 ml LVOT: 2.2 cm RV Base: 4.15 cm LVOT VTI: 19.3 cm RV Mid: 2.64 cm LV Stroke volume: 73.33 ml TAPSE: 1.36 cm TDI-S': 7.57 cm/s Doppler Measurements AV Peak Velocity: 1.78 m/s MV Peak E-Wave: 1.23 m/s AV Peak Gradient: 12.67 mmHg AV Mean Gradient: 8 mmHg MV P1/2t: 68 msec LVOT Peak Velocity: 1.12 m/s TR Velocity:2.14 m/s PV Peak Velocity: 1.29 m/s TR Gradient:18.32 mmHg PV Peak Gradient: 6.66 mmHg Estimated RAP:5 mmHg Estimated PASP: 23.32 mmHg Estimated RVSP: 23 mmHg E' Septal Velocity: 0.07 m/s E' Lateral Velocity: 0.12 m/s Findings Left Ventricle The left ventricle is normal in size . Moderate concentric left ventricular hypertrophy. Diastolic function indeterminate due to patient's arrhythmia. Right Ventricle Mildly reduced right ventricular function. Left Atrium The left atrium is moderately dilated by LA volume index measurement. Right Atrium The right atrium is mildly dilated. IVC measures 1.71 cm with inspiratory collapse. Mitral Valve Mild mitral regurgitation by color Doppler. Aortic Valve The aortic valve is mildly sclerotic. Tricuspid Valve Trivial tricuspid regurgitation by color Doppler. Pulmonic Valve PV is not well seen. Pericardial Effusion No evidence of pericardial effusion. Miscellaneous The ascending aorta maximum diameter measures 3.4 cm. Pleural Effusion No evidence of pleural effusion. Contractility Score LV regional wall motion:(0-Non visualized 1-Normal 2-Hypokinesis 3-Akinesis 4-Dyskinesis 5-Aneurysm) Signature dtt: ELANA KELLY dtd: 07/13/16 0716 Physician Self Edit
[~2016-07-04 07:18] MED LIST: ACARBOSE50 MG PO; FISH OIL 1,0001 EAC1 PO; GLUCOPHAGE1000 MG PO; GLUCOPHAGE500 MG PO; GLUCOTROL10 MG PO; LEVOTHROID (S100 MCG PO; MAG-OX-400(241400 MG PO; PLAVIX75 MG PO; PRECOSE25 MG PO; PRILOSEC20 MG PO; PRINIVIL (ZESTR20 MG PO; TENORMIN50 MG; THERA-VITE W/ B1 TAB PO; ZOCOR40 MG PO
[2016-07-04 15:12] LABS: BASOPHIL % 0.2 %; EOSINOPHIL # 0.1 K/uL (0.0-0.5); EOSINOPHIL % 0.8 %; HEMATOCRIT 32.3 % (33.0-50.0); HEMOGLOBIN 10.5 g/dL (11.0-16.0); IMMATURE GRANULOCYTE # 0.1 K/uL (0.0-0.3); IMMATURE GRANULOCYTE % 0.6 %; LYMPHOCYTE # 1.4 K/uL (0.8-4.0); LYMPHOCYTE % 11.1 %; MCH 28.9 pg (27.0-34.0); MCHC 32.5 gm/dL (32.0-36.5); MONOCYTE # 0.9 K/uL (0.0-1.0); MONOCYTE % 6.8 %; MPV 9.4 fl (9.4-12.4); NEUTROPHIL % 80.5 %; NRBC % 0 /100WBC (0-0.00); PLATELET COUNT 192 K/uL (150-450); RBC 3.63 M/uL (3.50-5.50); RDW-CV 14.4 % (11.9-14.6); WBC 12.4 K/uL (4.0-11.0)
[2016-07-04 15:35] LABS: ANION GAP 13.2 (10.0-19.0); BLOOD UREA NITROGEN 20 mg/dL (6-24); CALCIUM 8.4 mg/dL (8.5-10.5); CHLORIDE 99 mMol/L (96-110); CO2 28 mMol/L (22-32); ESTIMATED GFR (MDRD EQUATION) > 60; POTASSIUM 4.2 mMol/L (3.7-5.1); SODIUM 136 mMol/L (135-145)
[2016-07-04 17:42] LABS: INR - (THERAPEUTIC) 1.1 (0.9-1.1); PROTIME 11.4 SECONDS (9.6-11.1)
--- NOTE | 2016-07-04 17:46 | NUR ---
Significant Event:vss.ra.c/o pain on lt foot. morphine iv given x1 at 1600. norco just given at 1745. off bedrest at this time.rt groin csm, wnl.many skin issues.please refer to skin assessement.plans for lt aka tomorrow with . npo after mn. at the bedside.hospitalist on the case. Follow up:will continue to monitor per plan of care.
[2016-07-05 03:35] LABS: BASOPHIL % 0.1 %; EOSINOPHIL # 0.2 K/uL (0.0-0.5); EOSINOPHIL % 1.8 %; HEMATOCRIT 32.5 % (33.0-50.0); HEMOGLOBIN 10.2 g/dL (11.0-16.0); IMMATURE GRANULOCYTE % 0.3 %; LYMPHOCYTE # 1.4 K/uL (0.8-4.0); LYMPHOCYTE % 13.5 %; MCH 28.2 pg (27.0-34.0); MCHC 31.4 gm/dL (32.0-36.5); MCV 89.8 fl (83.0-98.0); MONOCYTE # 0.8 K/uL (0.0-1.0); MONOCYTE % 7.6 %; MPV 10.1 fl (9.4-12.4); NEUTROPHIL # (ANC) 7.7 K/uL (1.4-9.0); NEUTROPHIL % 76.7 %; NRBC % 0 /100WBC (0-0.00); PLATELET COUNT 185 K/uL (150-450); RBC 3.62 M/uL (3.50-5.50); RDW-CV 14.4 % (11.9-14.6)
[2016-07-05 03:43] LABS: ANION GAP 12.5 (10.0-19.0); BLOOD UREA NITROGEN 20 mg/dL (6-24); CALCIUM 8.4 mg/dL (8.5-10.5); CHLORIDE 99 mMol/L (96-110); CO2 26 mMol/L (22-32); CREATININE 0.9 mg/dL (0.6-1.3); ESTIMATED GFR (MDRD EQUATION) > 60; POTASSIUM 4.5 mMol/L (3.7-5.1); SODIUM 133 mMol/L (135-145)
--- NOTE | 2016-07-05 05:19 | NUR ---
Significant Event:VSS.PT IS CONFUSED AND BLACKFEET. PT IS IMPULSIVE. R GROIN IS CDI. PT NPO AFTER MIDNGHT. SURGICAL SHOWER. LR RUNNING @60ML.HR. PT TO HAVE L AKA. Follow up: CONT WITH PLAN OF CARE
--- NOTE | 2016-07-05 12:18 | NUR ---
Diabetes consult: Patient with A1C of 10.4%. The patient's reports that the patient has been having TIA's and on occassion forgets to take his oral glycemics. The patient and his has had diabetes education 15 years ago when he was diagnosed. The patient's is knowledgeable regarding diabetes. The patient has not been checking his blood sugars, but last he knew his A1C was in good control at 6.7%. Discussed at length, making healthy options for meals and snacks. The patient has a history of parotid cancer, and reports having a change in taste that limits what he wants to eat. The patient was given a new glucometer and instructed to test blood sugars three times daily. Sick day guidelines and hypoglycemia was reviewed. The patient and his were given a diabetes booklet and the assessment form to complete. Explained to the patient that he may need to go home on insulin. Patient reports he would be receptive, if his can give the injection. Will continue to follow.
--- NOTE | 2016-07-05 14:05 | NUR ---
5009 Introduced self/role to patient's Amaris, son and [id number]. ANTHONY Case Application Spec also present. They would like patient to go to [facility] if possible but are open to Inpatient Rehab. Explained how Medicare A worked in each. We also talked about Medicaid and terminal superintendent placement options if needed like SNF and RESIDENTIAL. Talked about those payer sources. We did talk about patients restlessness right now and that now wasn't the time to send a referral anywhere so might have to wait awhile. They agreed. Patients stated he already had memory issues. Amaris asked for some written information about Medicare, SNF general info, and GIRP. Will bring something up tomorrow. Wrote my name up on the marker board, will continue to follow.
--- NOTE | 2016-07-05 16:33 | NUR ---
Significant Event: pt had surgery this am amp left above knee. Dressing removed by pt in pacu and also on pcu at 1300 so redressed. [place] intact, scant bloody. Mg 1.7, po given. [place] last at 1515. Morphine given twice and ice applied for some control. Pt family here with him, is 1:1 as impulsive and pulls things. Johnson intact. Pt not eat/drink much. Vomit at 1630 zofran given. Pt forgets hes had his leg removed. CM talks to family in detail of dc plans Follow up:
--- NOTE | 2016-07-06 04:59 | NUR ---
Significant Event: VSS.RA.PT C/O PAIN TO L LEG. MORPHINE GIVEN X3 AND NORCO WITH NO RELIEF, PT TRYING TO GET OUT OF BED. NOTIFIED, AND NEW ORDERS RECEIVED FOR PAIN. TORADOL GIVEN X1 WITH RELIEF AND NORCO X2. PT SLEEPING/WAKES UP SPONTANEOUS AND AROUSABLE. PT IS DISORIENTED TO PLACE AND TIME. REPOSITIONED Q2H. 1:1 TIL MIDNIGHT. AT BS. KAMARA INTACT.[place]IN[place]O WRAP INTACT TO L STUMP. Follow up: CONT WITH PLAN OF CARE
[2016-07-06 05:34] LABS: BASOPHIL % 0.2 %; EOSINOPHIL # 0.1 K/uL (0.0-0.5); EOSINOPHIL % 0.9 %; IMMATURE GRANULOCYTE # 0.1 K/uL (0.0-0.3); IMMATURE GRANULOCYTE % 0.5 %; LYMPHOCYTE # 1.4 K/uL (0.8-4.0); LYMPHOCYTE % 12.6 %; MPV 9.9 fl (9.4-12.4); NEUTROPHIL # (ANC) 8.3 K/uL (1.4-9.0); NEUTROPHIL % 76.8 %; NRBC % 0 /100WBC (0-0.00); PLATELET COUNT 192 K/uL (150-450); RDW-CV 14.6 % (11.9-14.6); WBC 10.7 K/uL (4.0-11.0)
[2016-07-06 05:37] LABS: HEMATOCRIT 21.7 % (33.0-50.0); HEMOGLOBIN 6.8 g/dL (11.0-16.0); MCH 28.2 pg (27.0-34.0); MCHC 31.3 gm/dL (32.0-36.5); RBC 2.41 M/uL (3.50-5.50)
[2016-07-06 05:43] LABS: ALBUMIN 2.8 gm/dL (3.5-5.0); ANION GAP 14.1 (10.0-19.0); BLOOD UREA NITROGEN 18 mg/dL (6-24); CALCIUM 8.2 mg/dL (8.5-10.5); CHLORIDE 101 mMol/L (96-110); CO2 23 mMol/L (22-32); ESTIMATED GFR (MDRD EQUATION) > 60; PHOSPHORUS 3.5 mg/dL (2.5-4.9); POTASSIUM 5.1 mMol/L (3.7-5.1); SODIUM 133 mMol/L (135-145)
--- NOTE | 2016-07-06 09:55 | NUR ---
0955 Gave patients Amaris a print out of how Medicare works in [facility], Hospitalization, HHC and so on. Did note that the prices quoted are for 2016 so those would be slightly different for 2017.
--- NOTE | 2016-07-06 14:38 | NUR ---
Significant Event:Lethargic, opens eyes to sound, follows some commands, hollers out. Does not attempt to get out of bed. Oriented to self. Knows . Sinus arrhythmia. SBP 90's to 140's. O2 sats > 90% on room air when awake, drops to 83% when sleeping and needs 1 L O2/NC. Max temp 99.3, back down to 98.7 after O2 applied. 1st of 2 units of PRBC's infusing for HGB 6.8. C/O pain in left "lower leg". 2 [place] given every 4 hours with relief, last at 1140. [place] wrap clean, dry and intact to left stump elevated on folded blanket. R) heel elevated with blue foam cushion, crack on heel observed, scabs to R) knee are dry. Bottom is slighlty pink. moisture barrier applied. Bilateral groins are reddened and medicated ointment applied with morning bath. Poor appetite, but does swallow pills crushed and dissolved in warm water. is supportive at the bedside. Patient tends to want to pull at major catheter, so patient holds something in his hand at all times. Follow up:
--- NOTE | 2016-07-07 04:58 | NUR ---
Patient alert, follows commands, gives 1-2 word answers. VSS on 1L. Lungs clear/diminished. Bowel sounds present. IV to Lt forearm saline locked. Johnson. Repo q2hrs. [place] last at 0300. Accu check q4hrs. at bedside. Meds crushed in applesauce.
[2016-07-07 05:28] LABS: BASOPHIL % 0.2 %; EOSINOPHIL # 0.2 K/uL (0.0-0.5); EOSINOPHIL % 1.1 %; HEMOGLOBIN 9.3 g/dL (11.0-16.0); IMMATURE GRANULOCYTE # 0.1 K/uL (0.0-0.3); IMMATURE GRANULOCYTE % 0.5 %; LYMPHOCYTE % 6.8 %; MCHC 32.4 gm/dL (32.0-36.5); MCV 88.3 fl (83.0-98.0); MONOCYTE # 1.1 K/uL (0.0-1.0); NEUTROPHIL # (ANC) 11.7 K/uL (1.4-9.0); NEUTROPHIL % 83.4 %; NRBC % 0.1 /100WBC (0-0.00); PLATELET COUNT 190 K/uL (150-450); RDW-CV 14.8 % (11.9-14.6); WBC 14.1 K/uL (4.0-11.0)
[2016-07-07 05:35] LABS: HEMATOCRIT 28.7 % (33.0-50.0); MCH 28.6 pg (27.0-34.0); RBC 3.25 M/uL (3.50-5.50)
[2016-07-07 05:37] LABS: ANION GAP 12.5 (10.0-19.0); BLOOD UREA NITROGEN 16 mg/dL (6-24); CALCIUM 8.2 mg/dL (8.5-10.5); CHLORIDE 99 mMol/L (96-110); CO2 27 mMol/L (22-32); CREATININE 0.9 mg/dL (0.6-1.3); ESTIMATED GFR (MDRD EQUATION) > 60; POTASSIUM 4.5 mMol/L (3.7-5.1); SODIUM 134 mMol/L (135-145)
--- NOTE | 2016-07-07 09:30 | NUR ---
[address] [facility] called and asked for some information. Patients contacted them and stated he needed to out by Sunday. I informed Jessica that I told the I wasn't going to even start working on placement until Sunday because her still needed some time in the hospital. Faxed Jessica some information as that is where family wants patient to go.
[2016-07-07 15:43] LABS: BILIRUBIN URINE NEGATIVE (NEGATIVE); BLOOD URINE 250 /UL (NEGATIVE); GLUCOSE URINE 50 mg/dL (NEGATIVE); KETONE URINE NEGATIVE (NEGATIVE); LEUKOCYTES URINE 100 /UL (NEGATIVE); NITRITE URINE NEGATIVE (NEGATIVE); PROTEIN URINE 30 mg/dL (NEGATIVE); SPEC GRAVITY URINE 1.015 (1.003-1.035); UROBILINOGEN URINE NORMAL (NORMAL)
[2016-07-07 15:57] LABS: COLOR URINE YELLOW (YELLOW); TURBIDITY URINE 1+ (CLEAR)
[2016-07-07 15:58] LABS: BACTERIA URINE FEW (NEGATIVE); EPITHELIAL URINE 0-2 #/HPF (NEGATIVE); WBC CLUMPS URINE RARE (NEGATIVE)
--- NOTE | 2016-07-07 16:53 | NUR ---
Significant Event: Alert, will not answer questions but does follow commands; yells out with any movement or position change. VSS, SBPs 120-140s, HRs 70-80s, oxygen remains at 1 liter. 2 tabs of [place] given at 0730; patient rests comfortably unless moved. Johnson replaced this shift et urine sent to lab; 700 ml of yellow urine out this shift. Reposition every 2 hours. in room Follow up:
[2016-07-08 04:19] LABS: BASOPHIL % 0.2 %; EOSINOPHIL # 0.1 K/uL (0.0-0.5); EOSINOPHIL % 0.7 %; HEMATOCRIT 27.8 % (33.0-50.0); HEMOGLOBIN 9.2 g/dL (11.0-16.0); IMMATURE GRANULOCYTE # 0.1 K/uL (0.0-0.3); IMMATURE GRANULOCYTE % 0.5 %; LYMPHOCYTE # 0.8 K/uL (0.8-4.0); LYMPHOCYTE % 5.9 %; MCH 29.3 pg (27.0-34.0); MCHC 33.1 gm/dL (32.0-36.5); MCV 88.5 fl (83.0-98.0); MONOCYTE # 1.2 K/uL (0.0-1.0); MONOCYTE % 9.4 %; MPV 9.3 fl (9.4-12.4); NEUTROPHIL # (ANC) 10.7 K/uL (1.4-9.0); NEUTROPHIL % 83.3 %; NRBC % 0 /100WBC (0-0.00); PLATELET COUNT 208 K/uL (150-450); RBC 3.14 M/uL (3.50-5.50); RDW-CV 14.5 % (11.9-14.6); WBC 12.8 K/uL (4.0-11.0)
[2016-07-08 04:34] LABS: ANION GAP 14.2 (10.0-19.0); BLOOD UREA NITROGEN 14 mg/dL (6-24); CALCIUM 8.5 mg/dL (8.5-10.5); CHLORIDE 96 mMol/L (96-110); CO2 26 mMol/L (22-32); CREATININE 0.8 mg/dL (0.6-1.3); ESTIMATED GFR (MDRD EQUATION) > 60; POTASSIUM 4.2 mMol/L (3.7-5.1); SODIUM 132 mMol/L (135-145)
--- NOTE | 2016-07-08 05:29 | NUR ---
PATIENT MORE ALERT AND CONVERSATIONAL BUT CONFUSED. REPO Q2HRS. VSS ON RA. LUNGS CLEAR. BOWEL SOUNDS PRESENT. KAMARA. IV SALINE LOCKED. STUMP CDI. NORCO X2 FOR PAIN. NOT EATING OR DRINKING WELL. MEDS CRUSHED IN APPLESAUCE. AT BED SIDE.
--- NOTE | 2016-07-08 17:06 | NUR ---
Significant Event: Alert, patient more verbal today; will answer some questions but not orientation questions. Did become extremely aggitated, combative et restless this morning; patient was hitting, pinching, spitting et attempted to bite at his . 1 mg of Haldol given at 1048 with minimal relief; patient did calm down et rest for a little while. VSS, SBPs 110-150s, HRs 70-80s, on room air. Dilaudid given at 1401 et 2 tabs of [place] at 1119 for non-verbal signs of pain; patient is sleeping at this time. Major patent with 600 ml of yellow urine out; no bloody drainage noted at this time from patient grabbing major tubing. Daily dressing change to L) stump done. PT/OT ordered; patient to be up in the chair, may use lift if necessary. Patient eats better if fed by staff. Repositioned every 2 hours while in bed. Follow up:
--- NOTE | 2016-07-08 22:24 | NUR ---
A-SCREENED D/T LOS S/P L)AKA ON 07/05 COMBATITIVE AND AGITATED TODAY. ABLE TO ANSWER QUESTIONS, BUT NOT ORIENTATION QUESTIONS. HT: 66 IN WT: 72.2 KG. BMI 25.7 LABS: NA 132, K+ 4.2, GLU 194, BUN 14, GOVERNMENT RELATIONS ANALYST 0.8, ALB 2.8, HGB A1C 8.9 MEDS: HALDOL, SEROQUEL, NOVOLOG (MOD SS), LEVEMIR, DILAUDID, PRECOSE, MVI MAG-OX, ZOFRAN, NORCO, PRN BOWEL MEDS, MORPHINE, ZOCOR, PROTONIX DIET RX: CONSISTENT CARB. PO INTAKE HAS BEEN POOR; REF-50%. PER RN REPORT, PT DOES BETTER WHEN STAFF HELPS FEED HIM. EST NUTR NEEDS: 2365-4153 KCALS (28-32 KCALS/KG) 87-108 GM PROTEIN (1.2-1.5 GM/KG) 1 ML FLUID/KCAL D-AT NUTRITION RISK W/INCREASED NUTRIENT NEEDS R/T HEALING AEB S/P L)AKA. I-START GLUCERNA TID W/MEALS M/E-GOAL: PO INTAKE >/=50% BY NEXT F/U 1)F/U PO INTAKE, SUPPLEMENT, AND POC IN 3-5 DAYS 2)WILL ASSIST NEEDED
--- NOTE | 2016-07-09 04:52 | NUR ---
Significant Event: Alert, agitated at times. Very hard of hearing. Guarded and moaning later in shift. Gave Dilaudid 0.5mg for pain. VSS. Applied 1L 02 during 3rd assessment for sats in high 80's-low 90s. SBP 120-150s. LS clear/dim. Johnson 700 out. No bm. Turn q 2 hours. Follow up: Continue to monitor per plan of care.
[2016-07-09 05:11] LABS: BASOPHIL % 0.2 %; EOSINOPHIL # 0.2 K/uL (0.0-0.5); EOSINOPHIL % 2.1 %; HEMATOCRIT 28.1 % (33.0-50.0); HEMOGLOBIN 9.2 g/dL (11.0-16.0); IMMATURE GRANULOCYTE # 0.1 K/uL (0.0-0.3); IMMATURE GRANULOCYTE % 0.5 %; LYMPHOCYTE # 0.9 K/uL (0.8-4.0); LYMPHOCYTE % 8.6 %; MCH 28.8 pg (27.0-34.0); MCHC 32.7 gm/dL (32.0-36.5); MCV 87.8 fl (83.0-98.0); MONOCYTE % 9.9 %; MPV 9.7 fl (9.4-12.4); NEUTROPHIL # (ANC) 8.1 K/uL (1.4-9.0); NEUTROPHIL % 78.7 %; NRBC % 0 /100WBC (0-0.00); RDW-CV 14.1 % (11.9-14.6); WBC 10.2 K/uL (4.0-11.0)
[2016-07-09 05:13] LABS: PLATELET COUNT 252 K/uL (150-450)
[2016-07-09 05:30] LABS: ANION GAP 14.9 (10.0-19.0); BLOOD UREA NITROGEN 15 mg/dL (6-24); CALCIUM 8.6 mg/dL (8.5-10.5); CHLORIDE 95 mMol/L (96-110); CO2 26 mMol/L (22-32); CREATININE 0.7 mg/dL (0.6-1.3); ESTIMATED GFR (MDRD EQUATION) > 60; POTASSIUM 3.9 mMol/L (3.7-5.1); SODIUM 132 mMol/L (135-145)
--- NOTE | 2016-07-09 18:06 | NUR ---
Significant Event: Alert, a little more verbal today; will answer some questions. Cooperative with cares with the most part; does become aggitated with repositioning et dressing change. VSS, SBPs 100-120s, HRs 70-90, on room air. 2 tabs of [place] given this AM; relief noted. Johnson patent with 500 ml of yellow urine out this shift. PT/OT work with patient today; patient sat on edge of bed but unable to focus et follow commands to get into the chair. Reposition every 2 hours while in bed. Follow up:
[2016-07-10 04:09] LABS: BASOPHIL # 0.1 K/uL (0.0-0.2); BASOPHIL % 0.5 %; EOSINOPHIL # 0.3 K/uL (0.0-0.5); EOSINOPHIL % 2.7 %; HEMOGLOBIN 9.8 g/dL (11.0-16.0); IMMATURE GRANULOCYTE # 0.1 K/uL (0.0-0.3); IMMATURE GRANULOCYTE % 0.8 %; LYMPHOCYTE # 1.1 K/uL (0.8-4.0); LYMPHOCYTE % 11.4 %; MCH 28.9 pg (27.0-34.0); MCHC 32.7 gm/dL (32.0-36.5); MCV 88.5 fl (83.0-98.0); MONOCYTE # 1.2 K/uL (0.0-1.0); MONOCYTE % 12.2 %; MPV 9.3 fl (9.4-12.4); NEUTROPHIL % 72.4 %; NRBC % 0 /100WBC (0-0.00); PLATELET COUNT 284 K/uL (150-450); RBC 3.39 M/uL (3.50-5.50); RDW-CV 14.1 % (11.9-14.6); WBC 9.7 K/uL (4.0-11.0)
[2016-07-10 04:23] LABS: ANION GAP 15.2 (10.0-19.0); BLOOD UREA NITROGEN 17 mg/dL (6-24); CALCIUM 8.6 mg/dL (8.5-10.5); CHLORIDE 95 mMol/L (96-110); CO2 27 mMol/L (22-32); CREATININE 0.8 mg/dL (0.6-1.3); ESTIMATED GFR (MDRD EQUATION) > 60; POTASSIUM 4.2 mMol/L (3.7-5.1); SODIUM 133 mMol/L (135-145)
--- NOTE | 2016-07-10 05:01 | NUR ---
Significant Event: More alert today. Slightly agitated at beginning of shift. Low grade temps 99.0-99.7. Pt refused tylenol. Pt restless, moaning, gave dilaudid x1 for pain. VSS on RA. 450 uop. Turn q 2 hours. Follow up: Case management to find placement. Continue to monitor per plan of care.
--- NOTE | 2016-07-10 06:04 | NUR ---
Pt refused tylenol for low grade fever ( 99.7). For non-pharm interventions, room temperature was decreased and decreased the amount of blankets on patient.
--- NOTE | 2016-07-10 18:14 | NUR ---
Significant Event: Alert, not answering questions; cooperative with cares for the most part. Does become quite aggitated et restless; pulls at telemetry cords et pulls gown off. VSS, SBPs 100-110s, HRs 70-80s, on room air. Dilaudid given x2, last at 1744; patient appears to rest comfortably afterwards. Meds are given crushed in applesauce; patient spitting meds out when given. Dr. Knox up; dressing removed from L) stump; edges approximated, elizabeth intact, no drainage; may leave dressing off. Reposition every 2 hours while in bed; PT/OT working with patient. Follow up:may transfer to [facility] if a bed is need; transfer to [facility] when okay with hospitalist
--- NOTE | 2016-07-11 01:24 | NUR ---
PT TRANSFERRED TO [facility] AT 2310. PRIOR TO TRANSFER PT WAS ALERT BUT DISORIENTED. IRRITABLE AT TIMES. DOES NOT LIKE TO BE TURNED. DID STATE HE NEEDED TO HAVE A BM BUT WHEN HE WAS PLACED ON THE BEDPAN, HE WAS NOT ABLE TO GO. HE DID NOT UNDERSTAND THAT HE GO TO THE BR ON THE [address]. HIS TRIED TO ENCOURAGE HIM TO GO BUT HE WOULD NOT GO. A SUPPOSITORY WAS GIVEN AND HARD STOOL WAS NOTED BUT NOT ABLE TO DIGITALLY REMOVE DUE TO IT BEING HIGHER UP IN THE RECTUM. REMAINS IN ROOM AND WAS WHEELED OVER TO THE NEW ROOM BY NURSE.
--- NOTE | 2016-07-11 04:13 | NUR ---
PATIENT NONVERBAL AND ORIENTED TO SELF ONLY POD#6 S/P LEFT AKA W/DEAN INTACT, NO DRAINAGE NOTED TO SITE. RLE IN FOAM BOOT FOR CRACKED HEEL PER WOCN, RIGHT FA SALINE LOCK NEW 07/10, YEAST TO GROIN AREA, PSORIASIS TO BUTTOCKS. POOR PO INTAKE AND PATIENT REQUIRES A SOFT ADA DIET AND ASSISTANCE WITH FEEDING. POOR FLUID INTAKE, REFUSES MEDICATIONS MOST OF THE TIME AND THEY MUST BE CRUSHED AND PUT IN APPLESAUCE, PER SENIOR DIRECTOR NEVIN IVP LD@1745 AND PATIENT SPIT OUT NORCO PO AND NO PAIN MEDICATIONS GIVEN SINCE ARRIVED ON FLOOR AND HAS SLEPT WELL. PATIENT CAN BE VERY COMBATIVE AND IRRITABLE AND SPOUSE IS IN ROOM AT ALL TIMES AND CAN PROVIDE ASSISTANCE AND SPOUSE STATES THAT HE WAS SPEAKING IN FULL SENTENCES AT HOME BUT THAT HE WAS CONFUSED AT TIMES. KAMARA IN PLACE WITH DARK ELVIS UOP, NO BM SINCE ADMIT ON 07/04 PER PCU NURSE AND WAS GIVEN SUPP LAST EVENING AND STILL HAS NOT HAD ANY RESULTS. PATIENT WILL DC TO THE [facility] WHEN DISCHARGED. VS WNL, RA SATS >92%.
[2016-07-11 05:56] LABS: BASOPHIL % 0.3 %; EOSINOPHIL # 0.2 K/uL (0.0-0.5); EOSINOPHIL % 1.7 %; HEMATOCRIT 32.3 % (33.0-50.0); HEMOGLOBIN 10.4 g/dL (11.0-16.0); IMMATURE GRANULOCYTE # 0.1 K/uL (0.0-0.3); LYMPHOCYTE # 0.9 K/uL (0.8-4.0); LYMPHOCYTE % 6.8 %; MCH 28.7 pg (27.0-34.0); MCHC 32.2 gm/dL (32.0-36.5); MONOCYTE # 1.3 K/uL (0.0-1.0); MONOCYTE % 9.2 %; MPV 9.2 fl (9.4-12.4); NEUTROPHIL # (ANC) 11.2 K/uL (1.4-9.0); NRBC % 0 /100WBC (0-0.00); PLATELET COUNT 334 K/uL (150-450); RBC 3.63 M/uL (3.50-5.50); RDW-CV 13.9 % (11.9-14.6); WBC 13.8 K/uL (4.0-11.0)
[2016-07-11 06:16] LABS: ANION GAP 13.5 (10.0-19.0); BLOOD UREA NITROGEN 21 mg/dL (6-24); CALCIUM 8.8 mg/dL (8.5-10.5); CHLORIDE 94 mMol/L (96-110); CO2 29 mMol/L (22-32); CREATININE 0.9 mg/dL (0.6-1.3); ESTIMATED GFR (MDRD EQUATION) > 60; POTASSIUM 4.5 mMol/L (3.7-5.1); SODIUM 132 mMol/L (135-145)
--- NOTE | 2016-07-11 10:26 | NUR ---
Diabetes consult: Patient plans to go to [facility] at time of discharge. Blood sugars yesterday 198, 209, 176, and 234. FAsting blood sugar this morning elevated at 241. Correction scale was changed from Mild to moderate. Will continue to trend blood sugars. Patient may require an increase in Leve[place] to cover basal needs.
--- NOTE | 2016-07-11 13:45 | NUR ---
1345Updated Doris Tucker, I am working on placement but waiting for the appropriate time to send the referral. Saw that Palliative Care was involved and patient is a DNR now.
--- NOTE | 2016-07-11 13:46 | NUR ---
ST attempted to complete ST evaluation. Pt. asleep and unable to arouse by txst. Pt's reported pt. "restless" t/o day and given morphine. Pt. had noon meal tray sitting at bedside, but unable to arouse to attempt meal. Pt's educ. ST scheduled for appointments in afternoon, but plan to see pt. in a.m. Pt's agreed with plan.
--- NOTE | 2016-07-11 14:38 | NUR ---
A-NUTRITION F/U S/P L)AKA. PT IS NONVERBAL AND OREINTED TO SELF ONLY. NEEDS ASSISTANCE WITH MEALS. NO BM SINCE ADMIT; SUPPOSITRY GIVEN. LABS: NA 132, K+ 4.5, GLU 230, BUN 21, LABORATORY DIRECTOR 0.9 MEDS: LEVEMIR, SEROQUEL, DULCOLAX, COLACE, AND HALDOL DIET RX: CONSISTENT CARB W/GLUCERNA TID W/MEALS. PO INTAKE POOR; REFUSALS, BITES-50%. EST NUTR NEEDS: 6703-3220 KCALS AND 87-108 GM PROTEIN PT HAS A HX OF DIFF. SWALLOWING R/T HIATAL HERNIA, PER 'S REPORT. PT LIKES SOFTER FOODS; IE CREAM OF WHEAT FOR BREAKFAST. D-AT NUTRITION RISK W/1)INCREASED NUTRIENT NEEDS R/T HEALING AEB RECENT L)AKA AND 2)INADEQUATE INTAKE OF NUTRIENTS R/T ALTERED LOC, POOR APPETITE AEB CHART REVIEW, INTAKE RECORDS. I-1)ADD CREAM OF WHEAT TO PT'S BREAKFAST 2)CONTINUE W/GLUCERNA TID W/MEALS 3)ADD ENSURE PUDDING BID AT L/D 4)IF PO INTAKE DOES NOT IMPROVE CONSIDER TF, IF DESIRED. M/E-GOAL: PT WILL ACCEPT ORAL DIET 1)F/U PO INTAKE, SUPPLEMENT, AND POC IN 2-3 DAYS 2)ASSIST NEEDED
--- NOTE | 2016-07-11 19:21 | NUR ---
Oriented to self. Agitated and combative. Gave IM Haldol x1. Morphine x2 w/noted relief. Small BM x2 on bedpan. No PO meds taken as patient hit, spit, and refused. Poor intake of meals also. 500ml NS bolus given. PIV s/l'd to RW. L) stump stapled, well approximated, slightly reddened. Now DNR.
--- NOTE | 2016-07-12 04:28 | NUR ---
Significant Event: Pt agitated beginning of shift, was able to give HS seroquel in applesauce, no other oral meds were given as pt just not open his mouth. IV tylenol given inplace of the scheduled po. Low urine output new orders for 1 liter NS bolus and to start NS at 50mls/hr. Repositioned q 2 hours. Suppository given at around 0420 as pt did c/o his abdomen hurt. Follow up: Cont to monitor.
[2016-07-12 05:55] LABS: BASOPHIL # 0.1 K/uL (0.0-0.2); BASOPHIL % 0.4 %; EOSINOPHIL # 0.4 K/uL (0.0-0.5); EOSINOPHIL % 2.9 %; HEMATOCRIT 29.5 % (33.0-50.0); HEMOGLOBIN 9.6 g/dL (11.0-16.0); IMMATURE GRANULOCYTE # 0.1 K/uL (0.0-0.3); LYMPHOCYTE # 1.3 K/uL (0.8-4.0); LYMPHOCYTE % 9.2 %; MCH 29.4 pg (27.0-34.0); MCHC 32.5 gm/dL (32.0-36.5); MCV 90.2 fl (83.0-98.0); MONOCYTE # 1.2 K/uL (0.0-1.0); MONOCYTE % 9.1 %; MPV 9.1 fl (9.4-12.4); NEUTROPHIL # (ANC) 10.6 K/uL (1.4-9.0); NEUTROPHIL % 77.4 %; NRBC % 0 /100WBC (0-0.00); PLATELET COUNT 302 K/uL (150-450); RBC 3.27 M/uL (3.50-5.50); WBC 13.7 K/uL (4.0-11.0)
[2016-07-12 06:08] LABS: ALBUMIN 2.2 gm/dL (3.5-5.0); ANION GAP 14.2 (10.0-19.0); BLOOD UREA NITROGEN 24 mg/dL (6-24); CALCIUM 8.3 mg/dL (8.5-10.5); CHLORIDE 99 mMol/L (96-110); CO2 26 mMol/L (22-32); CREATININE 0.9 mg/dL (0.6-1.3); ESTIMATED GFR (MDRD EQUATION) > 60; PHOSPHORUS 3.3 mg/dL (2.5-4.9); POTASSIUM 4.2 mMol/L (3.7-5.1); SODIUM 135 mMol/L (135-145)
--- NOTE | 2016-07-12 10:55 | NUR ---
Leann from [facility] called and just wanted an update, she has been talking to the nurses off and on. I let her know patient was still very confused, however I didn't know his baseline dementia. Restless at times, working thru that. Not ready for placement yet but will keep her posted.
[2016-07-12 15:36] LABS: BASOPHIL % 0.3 %; EOSINOPHIL # 0.4 K/uL (0.0-0.5); EOSINOPHIL % 2.9 %; HEMATOCRIT 28.2 % (33.0-50.0); HEMOGLOBIN 8.9 g/dL (11.0-16.0); IMMATURE GRANULOCYTE # 0.1 K/uL (0.0-0.3); IMMATURE GRANULOCYTE % 0.9 %; LYMPHOCYTE # 1.4 K/uL (0.8-4.0); LYMPHOCYTE % 10.6 %; MCH 28.9 pg (27.0-34.0); MCHC 31.6 gm/dL (32.0-36.5); MCV 91.6 fl (83.0-98.0); MONOCYTE % 7.6 %; MPV 9.2 fl (9.4-12.4); NEUTROPHIL # (ANC) 10.2 K/uL (1.4-9.0); NEUTROPHIL % 77.7 %; NRBC % 0 /100WBC (0-0.00); PLATELET COUNT 286 K/uL (150-450); RBC 3.08 M/uL (3.50-5.50); RDW-CV 14.1 % (11.9-14.6); WBC 13.1 K/uL (4.0-11.0)
[2016-07-12 15:57] LABS: ALBUMIN 2.1 gm/dL (3.5-5.0); ALK PHOS 112 IU/L (33-138); ALT 55 IU/L (12-78); ANION GAP 15.8 (10.0-19.0); AST 59 IU/L (10-40); BLOOD UREA NITROGEN 26 mg/dL (6-24); CALCIUM 7.8 mg/dL (8.5-10.5); CHLORIDE 100 mMol/L (96-110); CO2 24 mMol/L (22-32); CPK 131 IU/L (35-332); ESTIMATED GFR (MDRD EQUATION) > 60; POTASSIUM 4.8 mMol/L (3.7-5.1); SODIUM 135 mMol/L (135-145); TOTAL BILIRUBIN 0.3 mg/dL (0.0-1.5); TOTAL PROTEIN 5.3 g/dL (6.0-8.4)
--- NOTE | 2016-07-12 17:22 | NUR ---
Confused. Sometimes agitated and combative, much less so than yesterday. Took most PO pills. Gave IV Tylenol x1 and Morphine x1. Rapid Response this afternoon for hypotension, low MAP, and lethargy. Bolused 1liter NS, then D5% 1/2NS @100ml/hr. MAPs in high 60s-low70s now. On RA, afebrile. IV to RFA. Dr Knox looked at stump; very happy with appearance and healing process. BS AC/HS w/moderate SSI. mid 200-300s. Tolerating ADA diet eating moderate amounts of food. Johnson draining concentrated urine. Pleasant this afternoon. Also gave 12.5mg Seroquel this a.m. This has been cut to 6.25mg BID PRN.
[2016-07-12 20:29] LABS: INR - (THERAPEUTIC) 1.2 (0.9-1.1); PROTIME 12.5 SECONDS (9.6-11.1)
[2016-07-13 03:20] LABS: BASOPHIL % 0.3 %; EOSINOPHIL # 0.5 K/uL (0.0-0.5); EOSINOPHIL % 3.5 %; HEMATOCRIT 27.2 % (33.0-50.0); HEMOGLOBIN 8.6 g/dL (11.0-16.0); IMMATURE GRANULOCYTE # 0.2 K/uL (0.0-0.3); IMMATURE GRANULOCYTE % 1.5 %; LYMPHOCYTE # 1.9 K/uL (0.8-4.0); LYMPHOCYTE % 14.4 %; MCH 28.9 pg (27.0-34.0); MCHC 31.6 gm/dL (32.0-36.5); MCV 91.3 fl (83.0-98.0); MONOCYTE % 7.8 %; MPV 9.2 fl (9.4-12.4); NEUTROPHIL # (ANC) 9.4 K/uL (1.4-9.0); NEUTROPHIL % 72.5 %; NRBC % 0 /100WBC (0-0.00); PLATELET COUNT 283 K/uL (150-450); RBC 2.98 M/uL (3.50-5.50)
[2016-07-13 03:30] LABS: ANION GAP 14.2 (10.0-19.0); BLOOD UREA NITROGEN 22 mg/dL (6-24); CHLORIDE 102 mMol/L (96-110); CO2 24 mMol/L (22-32); CREATININE 0.8 mg/dL (0.6-1.3); ESTIMATED GFR (MDRD EQUATION) > 60; POTASSIUM 4.2 mMol/L (3.7-5.1); SODIUM 136 mMol/L (135-145)
--- NOTE | 2016-07-13 04:24 | NUR ---
Significant Event: Pt alert. disoriented to time and place. agitated at beggining of shift IM haldol given. PRN tylenol given x1 with relief, also has scheduled tylenol that relieves pain. pt left stump with elizabeth intact with some drainage. Johnson intact drianing [place] urine, pt pulls at frequently. started on heprin drip and coumadin started. VSS, Hypotensive at times low 100's SBP. RA. 1 BM this shift. scheduled seraqueal. ACHS accuchecks. pt is iritable at times. pulled out IV new IV started in left AC. took all PO pills crushed in chocolate pudding. at bedside. slept on and off through out shift. foam boot on ankle right left to protect heel. Follow up: Frequent checks
--- NOTE | 2016-07-13 08:13 | NUR ---
A - NUTRITION F/U. PT AGITATED. S/P L) AKA, STUMP WOUND HEALING WELL. LABS: GLU 218, BUN/VB NET PROGRAMMER 22/0.8, ALB 2.1, WBC 13.0. DIET: MECH SOFT W/ GLUCERNA TID, ENSURE PUDDING BID. INTAKE REFUSED TO BITES/SIPS. EST NEEDS: 2569-4989 KCALS, 87-108 GM PROTEIN, 1 ML/KCAL FLUIDS. D - AT RISK W/ INADEQUATE ORAL INTAKE R/T DECREASED APPETITE AEB INTAKE RECORD. I - GOAL: 25% OR BETTER INTAKE. M/E - PT IS NOT A GOOD CANDIDATE FOR EN; HOWEVER, IF THIS IS DESIRED WOULD REC GLUCERNA 1.2 AT GOAL RATE OF 70 ML/HR = 2184 KCALS, 101 GM PROTEIN, 1352 ML FREE H20. FLUSH W/ 200 ML H20 EVERY 6 HRS.
--- NOTE | 2016-07-13 19:43 | NUR ---
Intermittent confusion/disorientation. L) AKA stapled, well approximated, pink areas. VSS, afebrile, denies N/V. BMs x3 today on bedpan. Major draining dark yellow urine; major has tear at y-site-not leaking. Foam boot to R) foot as tolerated. Gave [place] x1, Haldol x1, Morphine x1, Seroquel x1. Repo frequently as patient slides down often. IV to RFA fluids running. Heparin drip d/c'd today. Tele d/c'd today. BS AC/HS on moderate SSI w/coverage given at all checks. Feeding self well.
--- NOTE | 2016-07-14 04:18 | NUR ---
Patient alert and oriented to self, very comfused at times, can be combative, was cooperative tonight will me however got very aggitated and was yelling at and attempting to crawl out of bed, notified he ordered seroquel 25mg x1, he rested well after that until about 0300 when he got agitated and was attempting to crawl out of bed, given 2 Narco at this time is now resting quietly, folely catheter in place, had large bm this shift, at bedside, needs encouragement to drink fluids, has foam boot for the right leg which he refused to wear foot kept elevated with a pillow
--- NOTE | 2016-07-14 15:41 | NUR ---
Significant Event: PT ALERT, ORIENTED TO PERSON ONLY. REORINTED NEEDED. HAS BEEN PLEASANT THIS SHIFT. L AKA, DEAN INTACT. PT OFTEN FORGETS HE HAD AN AMPUTATION, NEEDS REMINDED THAT HE ONLY HAS 1 LEG. HAS SCHEDULED TYLENOL, NOT CONTROLLING PAIN ADEQUATELY, GAVE 1 TAB NORCO INSTEAD, KEEPS PT MORE COMFORTABLE. UP TO CHAIR WITH THERAPY TODAY. 2-3 PIVOT TURN TO BSC. HAD A MODERATE SIZE BM THIS SHIFT. EKG DONE THIS AM. AC HS ACCUCHECKS, MODERATE SSI. TOLERATING [facility] SOFT ADA DIET. KAMARA PATENT, STAT LOCK CHANGED. IVF RUNNING @ 75 TO R FA, RYANN WRAP. AT BEDSIDE. PLAN IS TO SNF IN [place] IF ACCEPTED. Follow up: ALARMS FOR SAFETY, PAIN CONTROL, REPOSITIONING
[2016-07-14 19:40] LABS: INR - (THERAPEUTIC) 2.5 (0.9-1.1); PROTIME 28.2 SECONDS (9.6-11.1)
[2016-07-15 04:52] LABS: BASOPHIL % 0.4 %; EOSINOPHIL # 0.4 K/uL (0.0-0.5); EOSINOPHIL % 3.5 %; HEMATOCRIT 27.1 % (33.0-50.0); HEMOGLOBIN 8.6 g/dL (11.0-16.0); IMMATURE GRANULOCYTE # 0.1 K/uL (0.0-0.3); IMMATURE GRANULOCYTE % 1.2 %; LYMPHOCYTE # 1.6 K/uL (0.8-4.0); LYMPHOCYTE % 15.7 %; MCH 28.9 pg (27.0-34.0); MCHC 31.7 gm/dL (32.0-36.5); MCV 90.9 fl (83.0-98.0); MONOCYTE # 0.8 K/uL (0.0-1.0); MONOCYTE % 8.1 %; MPV 9.2 fl (9.4-12.4); NEUTROPHIL # (ANC) 7.3 K/uL (1.4-9.0); NEUTROPHIL % 71.1 %; NRBC % 0 /100WBC (0-0.00); PLATELET COUNT 300 K/uL (150-450); RBC 2.98 M/uL (3.50-5.50); WBC 10.3 K/uL (4.0-11.0)
--- NOTE | 2016-07-15 04:54 | NUR ---
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 ORIENTED TO SELF ONLY AND WAS PLEASANT THIS SHIFT AND COOPERATIVE EVEN WHEN PULLING AT KAMARA AND IV'S WAS ABLE TO EXPLAIN TO THE PATIENT WHY TO NOT PULL ON THEM AND WILLINGLY COMPLIED. RFA PIV RUNNING NS@50ML/HR, KAMARA IN PLACE AND DRAINING WELL, TOLERATES A MECH SOFT ADA DIET, BS @2100 WAS 293 GIVEN 6 UNITS OF SS INSULIN AT THAT TIME ALONG WITH SCHEDULED LEVEMIR. RECEIVED SEROQUEL @HS, MORPHINE IVP X2 WITH GOOD RESULTS, POOR SLEEP PATTERNS DURING THE NIGHT BUT FINALLY SLEPT WELL AFTER 2AM. SPOUSE IN ROOM AND CALLED PERIODICALLY FOR ASSIST. WILL DC TO [facility] WHEN DISCHARGED.
[2016-07-15 05:01] LABS: INR - (THERAPEUTIC) 3.3 (0.9-1.1); PROTIME 38.8 SECONDS (9.6-11.1)
[2016-07-15 05:09] LABS: ANION GAP 11.3 (10.0-19.0); BLOOD UREA NITROGEN 10 mg/dL (6-24); CALCIUM 8.4 mg/dL (8.5-10.5); CHLORIDE 102 mMol/L (96-110); CO2 27 mMol/L (22-32); CREATININE 0.7 mg/dL (0.6-1.3); ESTIMATED GFR (MDRD EQUATION) > 60; POTASSIUM 4.3 mMol/L (3.7-5.1); SODIUM 136 mMol/L (135-145)
--- NOTE | 2016-07-15 16:26 | NUR ---
Significant Event: PT ALERT, ORIENTED TO PERSON, SOMETIMES TO PLACE. REORIENTED NEEDED. UP WITH 2PA, FULL LIFT. VSS ON RA, AFEBRILE. L AKA, DEAN INTACT, AREA IS SLIGHTLY RED. TOLERATING AN ADA, MECH SOFT DIET. ORDERS FOR TID PROTEIN SUPPLEMENT. UP TO CHAIR SEVERAL TIMES TODAY. KAMARA REMOVED AT 1200. NOTIFY MD IF UNABLE TO VOID. HAS HAD 1 INCONTINENT VOID SO FAR. COUMADIN DOSE DECREASED AND HELD TODAY FOR INR 3.3, LOVENOX ALSO DC'D. IVF RUNNING D51/2NS @ 42ML/HR. NORCO GIVEN FOR PAIN. PT HAS BEEN COOPERATIVE AND PLEASANT MOST OF SHIFT. HAD EPISODE OF TRYING TO GET OUT OF CHAIR, REMINDED THAT HE CAN NOT GET UP, PUT BACK IN BED AND PT CALM AGAIN. IS AT BEDSIDE. Follow up: LABS IN AM, ACHS ACCUCHECKS, ALARMS FOR SAFETY, ENCOURAGE PO INTAKE
[2016-07-16 05:09] LABS: BASOPHIL % 0.3 %; EOSINOPHIL # 0.4 K/uL (0.0-0.5); EOSINOPHIL % 3.9 %; HEMOGLOBIN 8.6 g/dL (11.0-16.0); IMMATURE GRANULOCYTE # 0.1 K/uL (0.0-0.3); IMMATURE GRANULOCYTE % 0.7 %; LYMPHOCYTE # 1.6 K/uL (0.8-4.0); LYMPHOCYTE % 14.5 %; MCH 29.1 pg (27.0-34.0); MCHC 31.9 gm/dL (32.0-36.5); MCV 91.2 fl (83.0-98.0); MONOCYTE # 0.9 K/uL (0.0-1.0); MONOCYTE % 8.3 %; MPV 9.3 fl (9.4-12.4); NEUTROPHIL # (ANC) 7.7 K/uL (1.4-9.0); NEUTROPHIL % 72.3 %; NRBC % 0 /100WBC (0-0.00); PLATELET COUNT 300 K/uL (150-450); RBC 2.96 M/uL (3.50-5.50); RDW-CV 14.4 % (11.9-14.6); WBC 10.7 K/uL (4.0-11.0)
[2016-07-16 05:18] LABS: PROTIME 34.4 SECONDS (9.6-11.1)
[2016-07-16 05:26] LABS: ANION GAP 13.4 (10.0-19.0); BLOOD UREA NITROGEN 10 mg/dL (6-24); CALCIUM 8.7 mg/dL (8.5-10.5); CHLORIDE 99 mMol/L (96-110); CO2 27 mMol/L (22-32); CREATININE 0.7 mg/dL (0.6-1.3); ESTIMATED GFR (MDRD EQUATION) > 60; POTASSIUM 4.4 mMol/L (3.7-5.1); SODIUM 135 mMol/L (135-145)
--- NOTE | 2016-07-16 05:26 | NUR ---
Significant Event: Patient has been agitated off and on throughout the night, fidgeting about in his bed. Pulled out his IV and it was restarted. [place] 1 tab given at HS, again at 245 and 446 for agitation, which seemed to help for awhile. Uses urinal sometimes, but is also incontinent of urine at times. at bedtime. Left leg amputation is slightly red with sutures. Follow up:Continue to monitor.
--- NOTE | 2016-07-16 16:04 | NUR ---
Significant Event: PT ALERT, ORIENTED TO SELF. REORIENTED NEEDED. RECOGNIZES PEOPLES FACES. HAS BEEN PLEASANT ALL SHIFT. UP WITH 2PA, FULL LIFT. THERAPY GOT UP TO CHAIR USING PIVOT. IS AT BEDSIDE. L AKA INTACT, SOME REDNESS. TOLERATING AN ADA, MECH SOFT DIET. AC HS ACCUCHECKS, MODERATE SSI. IV SALINE LOCKED. COUMADIN RESTARTED. HS SEROQUEL DOSE INCREASED. GEOVANI TAMAYO CALLED TO INFORM OF MD PLAN TO TRANSFER TO [facility] TOMORROW IF POSSIBLE. Follow up: ALARMS FOR SAFETY, REORIENTED NEEDED, POSSIBLE TRANSFER SUNDAY/SUNDAY?
--- NOTE | 2016-07-17 05:33 | NUR ---
Significant Event: Patient sets off alarms during the night, restless, confused. Tylenol given as scheduled with [place] in between. Seroquel increased at HS but didn't seem to do much good. Bendadryl was also given. Patient finally settled down around 1:00 oclock and slept for about 4 hours. Will probably go to [facility] today. Follow up: Continue to monitor. Bed alarms at all times.
[2016-07-17 05:39] LABS: BASOPHIL % 0.3 %; EOSINOPHIL # 0.4 K/uL (0.0-0.5); EOSINOPHIL % 3.4 %; HEMATOCRIT 28.7 % (33.0-50.0); IMMATURE GRANULOCYTE # 0.1 K/uL (0.0-0.3); IMMATURE GRANULOCYTE % 0.4 %; LYMPHOCYTE # 1.2 K/uL (0.8-4.0); LYMPHOCYTE % 10.7 %; MCH 28.7 pg (27.0-34.0); MCHC 31.4 gm/dL (32.0-36.5); MCV 91.4 fl (83.0-98.0); MONOCYTE # 0.9 K/uL (0.0-1.0); MONOCYTE % 7.9 %; MPV 9.3 fl (9.4-12.4); NEUTROPHIL # (ANC) 8.9 K/uL (1.4-9.0); NEUTROPHIL % 77.3 %; NRBC % 0 /100WBC (0-0.00); PLATELET COUNT 314 K/uL (150-450); RBC 3.14 M/uL (3.50-5.50); RDW-CV 14.5 % (11.9-14.6); WBC 11.5 K/uL (4.0-11.0)
[2016-07-17 06:00] LABS: ANION GAP 14.1 (10.0-19.0); BLOOD UREA NITROGEN 11 mg/dL (6-24); CALCIUM 8.8 mg/dL (8.5-10.5); CHLORIDE 97 mMol/L (96-110); CO2 27 mMol/L (22-32); CREATININE 0.8 mg/dL (0.6-1.3); ESTIMATED GFR (MDRD EQUATION) > 60; POTASSIUM 4.1 mMol/L (3.7-5.1); SODIUM 134 mMol/L (135-145)
[2016-07-17 06:22] LABS: PROTIME 26.1 SECONDS (9.6-11.1)
[2016-07-17 06:24] LABS: INR - (THERAPEUTIC) 2.3 (0.9-1.1)
--- NOTE | 2016-07-17 08:20 | NUR ---
0820 Faxed updates to [facility] #[phone], letting them know patient was ready today. [address] [facility] called she had some questions which I answered. She needs to call family and then will touchbase with me. Asked for orders as soon as possible. 0940 Spoke to Doris Tucker, she stated Amy Velazquez as on case today but she will relay the message that it sounds like a go for today. They will work on orders. 0945 spoke to patients . She does not have a car to get home. Working on either NH van or ambulance, she was fine with either. She had be talk to her son on her phone which I did. 1050 Jessica called an officially accepted patient, will send via ambulance. 1120 called Nya with EMS, will work on transfer, okay for to ride back with them. 1125 Talked to Amy and orders are done. 1140 Faxed orders. 1150 Nya from EMS called and they will be up here at 1300. Will fax me the "ride along" form to be completed. 1155 Update charge nurse Chayo, patients nurse Wendy (gave her nurse to nurse #), Dr Bustillos was in talking to patient and his so updated them. had me talk to her son via her phone. Explained there was no way to guarantee that Medicare would pay for the ambulance ride but doctor feels it to be medically needed and filled out a form for Medicare. Call [facility], Jessica out for lunch so told pegger dobby looms of dismissal time. Dr Bustillos will complete a face to face. Filled out "ride along" form and faxed to number provided on the form. PASRR placed in packet.
--- NOTE | 2016-07-17 12:48 | NUR ---
Confused/disoriented at times. Alert to self. Vital signs stable, afebrile, on room air. Left above the knee amputation with elizabeth, well approximated; occasional serosanguinous drainage. Elizabeth will be removed PO two weeks. Redness noted at site, but okay with vascular surgeon. at bedside and sometimes assists with cares. Peripheral IV removed from right wrist. Stand and pivot with two assist and gait belt; walker was more difficult. Has been DNR here. Diabetic AC/HS accuchecks on moderate sliding scale insulin; 1100 BS 181. Groin reddened; ointment previously ordered here. Buttocks reddened from psoriasis with triamcinilone cream applied. Seroquel scheduled morning and bedtime. Sometimes incontinent of bowel and bladder, sometimes uses urinal and bedpan.
== END 2016-07-17 13:10 | DRG 239 ==
LOC: GSDC 07:18 → GCAT 07:18 → GMSU 14:04 → GCAT 14:04 → GPCU 14:04 → GSDC 14:05 → GPCU 14:05 → GSDC 14:05 → GMSU 07-05 13:20 → GPCU 07-05 13:20 → GMSU 07-10 23:54 → GPCU 07-10 23:54 → GMSU 07-17 13:10
PROVIDERS: Family Medicine; Internal Medicine; Internal Medicine Interventional Cardiology; Obstetrics & Gynecology Obstetrics; Surgery Vascular Surgery; ADMIT Internal Medicine
PROC: B41D1ZZ Fluoroscopy of Aorta and Bilateral Lower Extremity Arteries using Low Osmolar Contrast (ICD-10-PCS; 2016-07-04)
PROC: 0Y680ZZ Detachment at Left Femoral Region, Open Approach (ICD-10-PCS; principal; 2016-07-05)
PROC: 30233N1 Transfusion of Nonautologous Red Blood Cells into Peripheral Vein, Percutaneous Approach (ICD-10-PCS; 2016-07-06)
DX: E11.52 Type 2 diabetes mellitus with diabetic peripheral angiopathy with gangrene (principal); G93.40 Encephalopathy, unspecified; E43 Unspecified severe protein-calorie malnutrition; D62 Acute posthemorrhagic anemia; F01.51 Vascular dementia, unspecified severity, with behavioral disturbance; I95.89 Other hypotension; F05 Delirium due to known physiological condition; L97.909 Non-pressure chronic ulcer of unspecified part of unspecified lower leg with unspecified severity; Z51.5 Encounter for palliative care; L97.519 Non-pressure chronic ulcer of other part of right foot with unspecified severity; I48.0 Paroxysmal atrial fibrillation; L97.524 Non-pressure chronic ulcer of other part of left foot with necrosis of bone; Z79.01 Long term (current) use of anticoagulants; D63.8 Anemia in other chronic diseases classified elsewhere; I10 Essential (primary) hypertension; I25.10 Atherosclerotic heart disease of native coronary artery without angina pectoris; K59.00 Constipation, unspecified; E78.00 Pure hypercholesterolemia, unspecified; E03.9 Hypothyroidism, unspecified; Z66 Do not resuscitate; H91.90 Unspecified hearing loss, unspecified ear; Z95.1 Presence of aortocoronary bypass graft; Z86.73 Personal history of transient ischemic attack (TIA), and cerebral infarction without residual deficits; Z79.02 Long term (current) use of antithrombotics/antiplatelets; Z79.4 Long term (current) use of insulin; Z85.46 Personal history of malignant neoplasm of prostate; Z86.718 Personal history of other venous thrombosis and embolism; Z86.12 Personal history of poliomyelitis; Z87.442 Personal history of urinary calculi; E11.621 Type 2 diabetes mellitus with foot ulcer; B36.9 Superficial mycosis, unspecified; L98.499 Non-pressure chronic ulcer of skin of other sites with unspecified severity; L40.9 Psoriasis, unspecified; Z92.21 Personal history of antineoplastic chemotherapy; E11.65 Type 2 diabetes mellitus with hyperglycemia; D72.829 Elevated white blood cell count, unspecified; G89.18 Other acute postprocedural pain; Z68.27 Body mass index [BMI] 27.0-27.9, adult; R13.10 Dysphagia, unspecified
CPT/HCPCS: A9270; J0131; J0690; J1170; J1630; J1644; J1650; J1885; J2001; J2270; J2405; J3010; J3480; J7030; J7040; J7050; J7120; P9016; P9045

== ENCOUNTER → 2016-07-17 | Outpatient (CLI) | payer MEDICARE, BC ==
[~2016-07-17] MED LIST changes: +ASCORBIC ACID500 MG PO; +COUMADIN **IA1 MG PO; +DULCOLAX10 MG R; +FEOSOL325 MG PO; +MILK OF MA400 MG/5 M PO; +MIRALAX PO527 GM/BOT PO; +NEURONTIN300 MG PO; +NITROSTAT0.4 MG SL; +NORCO 5-325 TA1 EACH PO; +OSCAL + D500 MG PO; +TYLENOL325 MG PO; +ULTRAM50 MG PO; +XANAX0.25 MG PO
== END | disposition disaster alternative care site (69) ==
LOC: GAMB 13:15
DX: R53.1 Weakness (principal); B99.9 Unspecified infectious disease; I48.2 Chronic atrial fibrillation; I10 Essential (primary) hypertension; F03.90 Unspecified dementia, unspecified severity, without behavioral disturbance, psychotic disturbance, mood disturbance, and anxiety; E11.9 Type 2 diabetes mellitus without complications; I25.10 Atherosclerotic heart disease of native coronary artery without angina pectoris; Z89.619 Acquired absence of unspecified leg above knee; Z98.890 Other specified postprocedural states; Z79.52 Long term (current) use of systemic steroids; Z79.899 Other long term (current) drug therapy
CPT/HCPCS: A0425; A0428

== ENCOUNTER 2016-08-14 16:15 | Inpatient (IN) | payer MEDICARE, BC ==
[~2016-08-14] VITALS: Ht 170.2 cm; Wt 61.8 kg
--- NOTE | ~2016-08-14 | ER ---
PATIENT'S NAME: IVETTE LOYA [facility] AGE: 85 Y [address] ROOM: [place] [address] [place] [facility] [place]: 08/14/2016 ER/Outpatient Report DISCHARGE DATE: FAMILY PHYSICIAN: Denny Jackman MD ATTENDING PHYSICIAN: BRYANT KNOX Time of Arrival: 1617 hours. Time of Evaluation: 1617 hours. CHIEF COMPLAINT: "Wound is dehisced." HISTORY OF PRESENT ILLNESS: The patient was seen at Dr. 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 Please see notes from Sangita Coley APRN and Dr. Knox. The patient is a resident at the [facility], and had the elizabeth removed sooner than they were supposed to and had sutures inserted in an attempt to approximate the wound. Sangita's notes report that today when they were removing the sutures to promote wound healing that the stump began to dehisce and bone was exposed. The patient will be admitted and needed revision of the left fnnqq-syu-njuk amputation stump. The patient was brought here to the ER for lab work and further evaluation to be done prior to admission. The patient does have a history of dementia and does not communicate, though states that he has been acting his normal self. Nurse from [facility] also reports that they were changing his diaper and noted a coccyx wound that does go to the fascia area. ALLERGIES: NO KNOWN ALLERGIES. CURRENT MEDICATIONS: On his chart and reviewed by me. PAST MEDICAL HISTORY: Dementia. He had coronary artery disease, peripheral vascular disease, hypertension, and oup-ulzngpe-dncicwpjf diabetes. He had CVA in 2004, prostate cancer, DVTs of the left leg, hypothyroidism, polio, urethral structures, and kidney stones. PAST SURGERIES: Include coronary bypass in 2000. He has had urethral stents and cataracts. SOCIAL HISTORY: The patient is currently a resident at the [facility]. PATIENT'S NAME: IVETTE LOYA [facility] AGE: 85 Y [address] ROOM: [place] [address] [place] [facility] [place]: 08/14/2016 ER/Outpatient Report DISCHARGE DATE: FAMILY PHYSICIAN: Denny Jackman MD ATTENDING PHYSICIAN: BRYANT KNOX REVIEW OF SYSTEMS: Negative other than those mentioned in the HPI. PHYSICAL EXAMINATION: VITAL SIGNS: Blood pressure was 99/60; pulse of 107; respirations 18; temperature of 97.4, tympanic; and O2 saturation was 95% on room air. GENERAL: He is awake and alert. Does not answer questions. Responds to verbal stimuli. He is given a warm blanket and commented how nice that felt. LUNGS: Lung sounds are clear throughout. HEART: Tachycardic. ABDOMEN: Soft, nondistended. Bowel sounds are present. He has a dressing to the left stump area. EMERGENCY DEPARTMENT COURSE: Saline lock was initiated. Lab work was drawn. CBC: White count was 8.3, hemoglobin was 10.3, hematocrit 32.8. Chem panel: BUN 32 with a creatinine of 1.2, GFR was 57, proBNP was 2122, lactate was 1.9, procalcitonin was 0.06. Vitals remained stable. Orders were faxed to us from Dr. Knox's office. Zosyn was ordered from the pharmacy and started. Hospitalist was contacted regarding the patient. IMPRESSION: Dehiscence of the left zjfnu-ujd-xxcw amputation. PLAN: The patient will be admitted for Dr. Knox with the hospitalist to manage his medical care. The patient's family is aware of plan. SHANIA HARRISON APRN FOR DO GREGORY CURTIS/reymundol /[id number] d: 08/15/16 0146 t: 09/05/16 0522, OUTPATIENT REPORT
--- NOTE | ~2016-08-14 | CON ---
PATIENT'S NAME: IVETTE LOYA [facility] AGE: 85 Y [address] ROOM: [place] [address] [place] [facility] [place]: 08/14/2016 Consultation DISCHARGE DATE: FAMILY PHYSICIAN: Denny Jackman MD ATTENDING PHYSICIAN: BRYANT KNOX DATE OF CONSULTATION: 08/16/2016 REFERRING PHYSICIANS: Earline Edmonds M.D. This is a Palliative Care referral for the patient and family support, readmission, and goals of care. HISTORY OF PRESENT ILLNESS: This 85-year-old male has recently had AKA and was at the custodial in [place] and had a dehiscence of his stump with cellulitis. He has a known history of advanced peripheral vascular disease, dementia with agitation, status post CABG x4, diabetes mellitus, and history of CVA. He came into Dr. Knox's office after the dehiscence and was admitted to the hospital. The patient will have a revision of dehiscence tomorrow, 08/17/2016, and is being treated with his cellulitis with antibiotics. PAST MEDICAL HISTORY: CAD, status post CABG x4; dementia; peripheral vascular disease; severe diabetes mellitus; history of CVA; hypertension; hypothyroidism, on Coumadin; DVT of left leg in 1986; history of prostate cancer; CVA in 2004 without any neurological deficits; history of polio; history of urethral stricture, status post stent placement in the past; and history of kidney stones in the past. PAST SURGICAL HISTORY: Coronary artery bypass graft, urethral stent, cardiac surgeries x4, fracture of the wrist repair, torn meniscus repair, and left zptvi-hfq-gtve amputation. ALLERGIES: NO KNOWN ALLERGIES. FAMILY HISTORY: Both parents at old age of unknown cause. CURRENT MEDICATIONS: 1. Insulin moderate sliding scale. 2. Florastor 250 mg tablet b.i.d. 3. MiraLax 17 grams daily. 4. Ferrous sulfate 325 mg daily. PATIENT'S NAME: IVETTE LOYA [facility] AGE: 85 Y [address] ROOM: [place] [address] [place] [facility] [place]: 08/14/2016 Consultation DISCHARGE DATE: FAMILY PHYSICIAN: Denny Jackman MD ATTENDING PHYSICIAN: BRYANT KNOX 5. Plavix 75 mg daily. 6. Levothyroxine 100 mcg daily. 7. Zosyn 3.375 every 8 hours IV. 8. Nitroglycerin 0.4. 9. Protonix 20 mg daily. 10. Milk of magnesia 30 mL p.r.n. for constipation daily. 11. Bisacodyl 10 mg every day p.r.n., rectal suppository. 12. Aspirin 650 mg every 4 hours p.r.n. 13. Gabapentin 300 mg b.i.d. 14. Noble 5/325 mg every 4 hours p.r.n. for pain. SOCIAL HISTORY: The patient had been living at home until last admission and went to the custodial in [place]. He is . No alcohol or smoking history. REVIEW OF SYSTEMS: A 10-point review of systems was done and is negative except as mentioned in the HPI and listed below. Reviewed with and chart due to the patient's cognitive status. The patient does answer some questions. Not oriented to time and place. Denies pain, nausea, vomiting, or shortness of breath. Unknown last bowel movement. GI: Appetite has been decreased per . Has not been eating much. Does have problems with constipation in the past per . PSYCH: states that mental status is not improved at the custodial. Continues to be confused and has been making statements of he wishes he could just , does not want to live this way. Has been restless, taking off bandages, and pulling off telemetry leads. PHYSICAL EXAMINATION: GENERAL: This is a frail 85-year-old male. VITAL SIGNS: Temperature 97.5 axillary, pulse 64, respirations 16, blood pressure 109/41, and O2 saturation is 96%. He is 5 feet and 7 inches. Weighs 146 pounds with a BMI of 22.9. Weight on 07/05/2016 was 167 and BMI was 27.0, so weight loss of 20 pounds since last admission. GENERAL: Alert, not oriented to time and place, but does arouse. Speech was mumbled due to dry tongue, more able to understand after his tongue was wet, but still confused to time and place. Recognizes his , but unable to state her name. SKIN: Warm and dry. Color pale. HEENT: Head normocephalic and atraumatic. Sclerae nonicteric. Conjunctivae are pale and pink. Mouth and tongue are very dry. No exudate. LYMPHS: No cervical adenopathy or thyromegaly. RESPIRATORY: Clear to auscultation bilaterally. Breath sounds even and regular throughout. CARDIAC: S1 and S2 without murmurs or bruits. PATIENT'S NAME: IVETTE LOYA [facility] AGE: 85 Y [address] ROOM: [place] [address] [place] [facility] [place]: 08/14/2016 Consultation DISCHARGE DATE: FAMILY PHYSICIAN: Denny Jackman MD ATTENDING PHYSICIAN: BRYANT KNOX ABDOMEN: Soft. Nontender. Positive bowel tones. No hepatosplenomegaly. NEUROLOGIC: Grossly intact. Forgetful. Confused to time and place. Does follow commands. MUSCULOSKELETAL: Appropriate range of motion. Decreased muscle mass in extremities. Left wpfua-wim-uwcd amputation. Wound dehisced, reddened around incision. EXTREMITIES: No cyanosis. Scabs on toes of right foot. Toes are reddened and cool. 1+ pedal pulse in right foot. Palliative performance scale is 20%, totally bed-bound, unable do any activity, total care, minimal intake, and conscious level is periods of confusion and drowsy. IMPRESSION: Left stump pain, delirium/dementia, constipation, and anorexia/malnutrition. PLAN: 1. Met with , seen the patient on previous admission of 07/05/2016. Discussed the patient's overall condition and time at custodial. The patient had continued to be confused at custodial, not eating, and overall declining. He had told his he did not want to live this way. is tearful with comments. She states that they had done advance directives in either one of wanted to live this way. 2. Code status and advance directive. The patient is currently a full code. Discussed the patient's and 's wishes regarding CPR and a ventilator and life-sustaining treatment form measures. states that they would not want CPR or a ventilator. Discussed if the patient is having surgery tomorrow, he would be a full code during surgery. She agrees with the plan. She continues to want to have incision on left stump fixed, but not any long-term life prolonging treatments such as CPR or ventilator. GOALS: 1. Get pain under control. 2. Do surgery tomorrow. 3. Control the patient's restlessness and confusion. Long-term goal is to get back to the custodial in [place] closer to home. Discussed fears and concerns. Answered questions and concerns. RECOMMENDATIONS: For pain: 1. Scheduled Tylenol. 2. May consider adding Ultram 50 mg t.i.d., the patient had at custodial. Delirium: Narcotics may be aggravating delirium. 1. Nonpharmacological treatments of glasses, natural light, family at PATIENT'S NAME: IVETTE LOYA [facility] AGE: 85 Y [address] ROOM: [place] [address] [place] [facility] [place]: 08/14/2016 Consultation DISCHARGE DATE: FAMILY PHYSICIAN: Denny Jackman MD ATTENDING PHYSICIAN: BRYANT KNOX bedside, and encouraging the patient to eat. 2. May consider adding Seroquel, low-dose Seroquel was on board last time and seemed to help the patient, who denied constipation, unknown last bowel movement. The patient has been having varying bowel movements. May consider giving a Dulcolax suppository today. 3. Xanax may be aggravating delirium and dementia, may consider changing to Seroquel and discontinuing the Xanax. Anorexia and malnutrition: Offer Ensure with meals, in between meals, one on one feeder if is not present. CODE STATUS: May change code status to DNR/DNI after surgery. Total time was 60 minutes with 50 minutes for counseling and coordination of care. Thank you for allowing me to assist with this patient and family. ARTHUR EDLEON NP FOR MD JUDY PEREIRA/reshma /[id number] d: 08/16/16 1843 t: 09/01/16 0931, CONSULTATION REPORT
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
--- NOTE | ~2016-08-14 | CON ---
PATIENT'S NAME: IVETTE AGUIRRE [facility] AGE: 85 Y [address] ROOM: [place] [address] [place] [facility] [place]: 08/14/2016 Consultation DISCHARGE DATE: FAMILY PHYSICIAN: Denny Jackman MD ATTENDING PHYSICIAN: BRYANT KNOX DATE OF CONSULTATION: 08/16/2016 REASON FOR CONSULTATION: Dehiscence, left pcxou-por-lefq amputation site with cellulitis. HISTORY OF PRESENT ILLNESS: Mr. Aguirre is an 85-year-old male who has many medical problems including severe dementia and peripheral vascular disease who had been admitted to the hospital with what sounds like gangrenous toes and nonhealing wounds with an ischemic left leg and underwent an vilid-zuc-bkyr amputation on the left-side on 07/05/[address] Knox. He was ultimately discharged and went to [facility] in [place]. He had his sutures removed by his primary care physician and when he showed up to see Dr. Knox in followup it was noted that his wound was dehisced. He was admitted to the hospital and started on Zosyn with plans to revise his AKA tomorrow. ID was asked to see him. The patient is not able to provide any history given his severe dementia and his really does not know what happened to him if he had fevers, chills, sweats, nausea, vomiting, etc. Apparently, he had been quite agitated, but has now been calm and slept. He reports that he has not really slept much prior to that. PAST MEDICAL HISTORY: Significant for coronary artery disease, peripheral vascular disease, type 2 diabetes, history of a CVA, prostate cancer, history of a DVT, hypertension, hypothyroidism, history of polio, urethral stricture, and history of kidney stones. ALLERGIES: NO KNOWN MEDICAL ALLERGIES. MEDICATIONS: He has been on Zosyn since 08/16/2016. SOCIAL HISTORY: He is not a smoker. FAMILY HISTORY: Both his parents apparently lived to old age. PATIENT'S NAME: IVETTE [facility] AGE: 85 Y [address] ROOM: [place] [address] [place] [facility] [place]: 08/14/2016 Consultation DISCHARGE DATE: FAMILY PHYSICIAN: Denny Jackman MD ATTENDING PHYSICIAN: BRYANT KNOX REVIEW OF SYSTEMS: Not reliably obtained from the patient. PHYSICAL EXAMINATION: GENERAL: Did not appear toxic. He is somnolent, but does arouse and does not answer any questions for me. He is not agitated or restless like he had reportedly been. VITAL SIGNS: His T-max is 98.2, blood pressure 132/68, pulse 108, and respirations 20. HEENT: NC/AT. EOMI. PERRLA. Oropharynx clear. NECK: Supple. LUNGS: Clear. HEART: Regular. ABDOMEN: Soft and nontender. EXTREMITIES: Left AKA wound is dehisced with a minimal erythema around it, there is a little bit of slough in the wound, really does not look bad, there is no odor, there is no crepitance, there is no significant purulent drainage, there is a little bit of serous drainage. LABORATORY DATA: His white count is 3.3, hemoglobin 10.3, and platelet count 427. Sodium 135, potassium 4.5, chloride 99, bicarb 28, BUN 32, creatinine 1.2, and glucose 164. A1c of 8.9% July 04. No recent imaging. ASSESSMENT AND PLAN: Dehiscence, left above-knee amputation wound with mild cellulitis. It does not look terrible at the present time. Continue him on the Zosyn for now. If no deep infections found at time of revision tomorrow as expected could change him to something by mouth. Tissue cultures might be helpful in directing therapy; however, could just consider using Augmentin and/or doxy just to cover skin for it just for short-time until we make sure that this heals and closes up. Thanks, please call with questions. MD LILIAN RAMEY/modl /[id number] d: 08/17/16 0017 t: 09/13/16 1758, CONSULTATION REPORT
--- NOTE | ~2016-08-14 | CON ---
PATIENT'S NAME: IVETTE LOYA [facility] AGE: 85 Y [address] ROOM: [place] [address] LOCATION: [facility] [place] ADMIT DATE: 08/14/2016 Consultation DISCHARGE DATE: FAMILY PHYSICIAN: Denny Jackman MD ATTENDING PHYSICIAN: BRYANT KNOX CHIEF COMPLAINT: Left AKA, suture dehiscence with cellulitis. HISTORY OF PRESENT ILLNESS: The patient is an 85-year-old male with past medical history significant for dementia with agitation, CAD, status post CABG, peripheral vascular disease, diabetes mellitus, history of CVA, hypertension, who presents here from Dr. Knox's office with dehiscence, surgical suture of left AKA with possible cellulitis. The patient had an AKA of left upper extremity on June 2016 and did not have followup with Dr. Knox; however, the patient presented to Dr. Knox's office today with new sutures done different from Dr. Knox's elizabeth that was done on June 2016. On initial evaluation, the sutures was found to be dehiscenced with possible cellulitis and exposed bone. The patient was admitted to our hospital direct admission from Dr. Knox for IV antibiotics and reevaluation of AKA. The patient has significant dementia, unable to get information from the patient. I have called [facility] and was told that patient is bedridden and has dementia with combative disorder. PAST MEDICAL HISTORY: 1. CAD, status post CABG. 2. Severe dementia. 3. Peripheral vascular disease. 4. Diabetes mellitus. 5. History of CVA. 6. Hypertension. 7. Hypothyroidism and on Coumadin. Reason unknown. I suspect to be A. fib. PAST SURGICAL HISTORY: 1. CABG. 2. AKA. 3. History of urethral stricture, status post stents. FAMILY HISTORY: Unable to obtain family history due to the patient's mentation . SOCIAL HISTORY: The patient lives in residential. Unable to further investigate as the patient has dementia and is not able to give good history. PATIENT'S NAME: IVETTE LOYA [facility] AGE: 85 Y [address] ROOM: [place] [address] LOCATION: [facility] [place] ADMIT DATE: 08/14/2016 Consultation DISCHARGE DATE: FAMILY PHYSICIAN: Denny Jackman MD ATTENDING PHYSICIAN: BRYANT KNOX MEDICATIONS: 1. Acarbose 50 mg. 2. Tylenol. 3. Xanax 0.25 mg p.o. every 8 hours for agitation. 4. Ascorbic acid. 5. Dulcolax. 6. Plavix. 7. Ferrous sulfate. 8. Gabapentin 300 mg twice daily. 9. Hydrocodone with acetaminophen 5 mg/325 mg tablets one tablet p.o. every two hours p.r.n. 10. Hydrocodone/acetaminophen two tablets p.o. every four hours. 11. Synthroid 100 mcg with meals. 12. Nitroglycerine as needed for pain. 13. Protonix. 14. Polyethylene glycol. 15. Tramadol 50 mg three times daily. 16. Warfarin 1 mg every day. REVIEW OF SYSTEMS: Unable to assess review of systems due to the patient's dementia and inability to cooperate. PHYSICAL EXAMINATION: VITAL SIGNS: Temperature 97.7, blood pressure 119/71, pulse 83, respiratory rate 16. GENERAL APPEARANCE: The patient is somnolent, but awakes to name. Does not follow commands. HEENT: Dry oral mucosa. No JVD. CHEST: Clear to auscultation. No rhonchi, rales, or wheezes heard. CARDIOVASCULAR: Regular rate and rhythm. No, MRG. ABDOMEN: Soft, nontender. Bowel sound present. EXTREMITIES: Left AKA. Dressing clean, dry, and intact. Right lower extremity distal pulse faint on palpation present with Doppler. There is some ischemic, necrotic change. NEUROLOGIC: The patient alert and oriented x0. Moves all extremities. Unable to assess sensory. LABORATORY DATA: White blood cell count of 8.3, hemoglobin of 10.3, hematocrit of 32.8, platelets of 427. Sodium 135, potassium 4.5, chloride 99, CO2 28, BUN 32, creatinine 1.2, and blood glucose of 164. BNP, proBNP 2122. ASSESSMENT AND PLAN: The patient is an 85-year-old gentleman with history of dementia, coronary PATIENT'S NAME: VIETTE LOYA Emilia [facility] AGE: 85 Y [address] ROOM: [place] [address] LOCATION: [facility] [place] ADMIT DATE: 08/14/2016 Consultation DISCHARGE DATE: FAMILY PHYSICIAN: Denny Jackman MD ATTENDING PHYSICIAN: BRYANT KNOX artery disease, status post coronary artery bypass grafting, peripheral vascular disease, diabetes mellitus, and hypertension who presents here from Dr. Knox's office with dehiscence suture of left above-knee amputation and possible cellulitis. The patient will be started on Zosyn to evaluate his above-knee amputation during this admission. Wound Care to be consulted. 1. Severe dementia. Possible underlying delirium due to possible infection of cellulitis. We will treat underlying etiology. We will keep the patient n.p.o., now as the patient is noted to be more somnolent and confused. We will hold Xanax and decrease pain medication as they might cause this worsening of encephalopathy. 2. Decubitus ulcer. On physical examination, the patient was noted to have stage 4 decubitus ulcer. Wound Care on consult. 3. Peripheral vascular disease. We will continue Plavix. 4. Diabetes mellitus. We will hold Acarbose and start the patient on sliding scale. 5. Hypothyroidism. We will continue home medication Synthroid. 6. Coronary artery disease, status post coronary artery bypass grafting. We will continue Plavix. 7. Chronic anticoagulation use with Coumadin. Reason unknown. I suspect this be from atrial fibrillation as one of the echo shows possible arrhythmia. He did not further say what kind of arrhythmia it is, but I suspect the atrial fibrillation. We will hold Coumadin for possible surgical intervention. We will keep the patient on telemonitor. 8. History of cerebrovascular accident. We will continue Plavix. 9. Otwlk-lj-oslueuc encephalopathy. Etiology secondary to delirium. See above for further plan. 30 minutes was spent on plan and care. Thank you for involving us in the care of this patient. MD NAYELI FARFAN/reshma /[id number] d: 08/15/16 0447 t: 08/15/16 1134, CONSULTATION REPORT
--- NOTE | ~2016-08-14 | OR ---
PATIENT'S NAME: IVETTE LOYA [facility] AGE: 85 Y [address] 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 PROCEDURE: Left AKA revision with resection of distal femur and placement of a wound VAC. HELIX COIL WINDER: NILE Nichols. ANESTHESIA: General. ESTIMATED BLOOD LOSS: About 100 mL. OPERATIVE FINDINGS: Bone resected back into wound, wound VAC placed with good suction. DESCRIPTION OF PROCEDURE: The patient was brought to the operating room, placed supine on the operative table, prepped and draped in a sterile manner. Preoperative time-out was performed. The patient was placed under general anesthesia. We made an elliptical incision over the granulation tissue to cover the bone. We then used Bovie cautery to resect the granulation tissue surrounding the bone away from the bone itself. We then transected the bone with a reticulating saw so that it was below the area of the open wound. We then debrided any necrotic tissue away from the surrounding size of the wound, copiously irrigated with antibiotic solution, then placed a wound VAC. The patient tolerated the procedure well, transferred to the recovery room and on to the floor. DEQUAN KNOX MD FKM/modl PATIENT'S NAME: IVETTE LYOA [facility] AGE: 85 Y [address] ROOM: [place] [address] LOCATION: GPCU ADMIT DATE: 08/14/2016 OR/Procedure Report DISCHARGE DATE: FAMILY PHYSICIAN: Denny Jackman MD ATTENDING PHYSICIAN: DEQUAN KNOX #: [id number] d: 08/17/162203 t: 08/19/16 0945, OPERATIVE SUMMARY
--- NOTE | ~2016-08-14 | DS ---
PATIENT'S NAME: IVETTE LOYA [facility] AGE: 85 Y [address] ROOM: [id number] [place] [address] LOCATION: GPCU ADMIT DATE: 08/14/2016 Discharge Summary DISCHARGE DATE: 08/29/2016 FAMILY PHYSICIAN: Denny Jackman MD ATTENDING PHYSICIAN: Dequan Knox FINAL DIAGNOSIS: Left rnqqx-olq-cxoo amputation dehiscence with cellulitis. SECONDARY DIAGNOSES: 1. Acute on chronic encephalopathy. 2. Diabetes mellitus type 2. 3. Peripheral vascular disease, postop left lqujx-fqm-vxmk amputation. 4. Decubitus ulcer, stage III, present on admission. 5. Atrial fibrillation, rate controlled, on chronic anticoagulation. 6. Hypothyroidism. 7. Dementia. 8. Fever. PROCEDURE: Revision of left fwqfi-fae-smgp amputation stump with wound VAC placement on 08/17/[address] Knox. CONSULTATIONS: 1. Hospitalist for medication management, Dr. Jaja Houston. 2. Infectious disease, Dr. Sebastian Sanchez. 3. Palliative Care, Leticia Mccarthy, GEOPHYSICAL DRAFTER. 4. Wound Care, Madeleine Mccloud, SHIRAZ. 5. Psych, Dr. Kaden Chamberlain. HOSPITAL COURSE: This is an 85-year-old male, admitted to [facility] on 08/14/2016 after presenting to [facility] for evaluation of his left hlrpt-wgo-zlxp amputation site. The patient had undergone a left iqqru-kgh-ochl amputation on 07/04/2016 due to dry gangrene and non-reconstructible peripheral vascular disease. Sometime between hospital discharge and return to clinic, his elizabeth were removed and sutures were applied to the site. The sutures were removed at [facility] to promote healing and at that time, the stump dehisced. He was admitted directly to [facility] from the clinic on IV Zosyn and labs were ordered. The patient admitted under Dr. Knox and Hospitalists were consulted for medication management. Wound Care consulted regarding decubitus ulcer. Wound Care ordered ensure, dietary consult and footdrop boot to prevent trauma to right lower extremity. The patient was placed on telemetry and EKG obtained for suspected atrial fibrillation. The patient had a known history of atrial fibrillation, on chronic anticoagulation with Coumadin. Palliative Care consult for pain control and comfort measures. The patient's reported that since previous discharge, the patient had PATIENT'S NAME: IVETTE LOYA [facility] AGE: 85 Y [address] ROOM: [id number] [place], [place] [address] LOCATION: GPCU ADMIT DATE: 08/14/2016 Discharge Summary DISCHARGE DATE: 08/29/2016 FAMILY PHYSICIAN: Denny Jackman MD ATTENDING PHYSICIAN: Dequan Knox remained confused and condition was rapidly declining at snf with loss of appetite. The Palliative Care team recommended avoiding narcotics and Xanax as they may have been aggravating factor to delirium and dementia. [place] and Xanax were discontinued and the patient was started on Seroquel and tramadol. On 08/17/2016, the patient underwent left knfac-een-quvm stump revision with VAC placement by Dr. Knox. The patient tolerated the procedure well, but after surgery had atrial fibrillation with RVR. The patient was subsequently started on digoxin, Lopressor, and Coreg. Postoperatively, the patient was pulling at his monitors, IV lines, and wound VAC. At that time, he was placed in wrist restraints. The patient's discussed with Palliative Care, and the patient was changed to DNI/DNR following surgery. Wound Care continued with wound VAC changes 3 times weekly to his left stump, stump remained clean, and improved with each dressing change. The patient was irritable and aggressive during dressing changes and did not always agree to taking pain medication. Again on 08/19/2016, the patient was placed in mitten restraints. On 08/20/2016, the patient had another episode of atrial fibrillation with RVR with rates in the 150s. He received a loading dose of digoxin and heart rate decreased to 30s, the digoxin was discontinued. At one point, the patient developed a fever of 102.9. Blood cultures were drawn which remained without growth, chest x-ray obtained, and the patient started on IV vancomycin. The patient had poor oral intake. He did begin working with Physical Therapy and Occupational Therapy on 08/22/2016. On 08/22, IV Zosyn and vancomycin were discontinued, and the patient was started on oral Augmentin. His mitten restraints were removed on 08/23/2016. Benadryl and morphine were discontinued. The patient continued to have episodes of confusion in clarity and at times was unresponsive to questions. Telemetry removed on 08/24/2016, and the patient was started on Nucynta. Wound Care continued with Betadine painting to right lower extremity wounds. On 08/27, psych was consulted for delirium, agitation, and history of dementia. Psych recommended increasing Seroquel on 08/28/2016. Intermediate staff performed dressing change with wound Care team and the patient was found in a stable condition and discharged to snf facility. The patient's was in agreeance with the plan. DIAGNOSTICS: Chest x-ray, 08/20/2016: Previous CABG, normal heart size, tortuous aorta, and mild left basilar lung scarring. No failure or pneumonia. A chest x-ray on 08/21/2016, impression: Central vascular congestion may reflect mild edema. LABS TRENDING: White blood cell count 8.3, 7.7, 7.6, 7.6, 12.7, 9.8, 8.7, 8.5, 9.5, 11.1, 11.6, 10.3, 8.8, 7.3; hemoglobin trending 10.3, 10.6, 9.4, 9.1, 10.2, 9.0, 8.7, 8.6, 9.3, 10.1. INR on discharge 2.02. DISCHARGE ORDERS: The patient is to be discharged to [facility]. He is to continue on a diabetic diet. Nonweightbearing to his PATIENT'S NAME: IVETTE LOYA [facility] AGE: 85 Y [address] ROOM: [id number] [place] [id number] LOCATION: GPCU ADMIT DATE: 08/14/2016 Discharge Summary DISCHARGE DATE: 08/29/2016 FAMILY PHYSICIAN: Denny Jackman MD ATTENDING PHYSICIAN: Dequan Knox left stump. He is to follow up with Dr. Knox on 09/21/2016 at 2:30 p.m. Physical Therapy and Occupational Therapy may work with the patient. care home staff to apply wound VAC 3 times a week to left stump. They are good to continue Betadine daily to right foot wounds and avoid any trauma to the right foot using a right foot boot. DISCHARGE MEDICATIONS: 1. Calcium with vitamin D 500 mg p.o. twice daily. 2. Tylenol 650 mg p.o. every 6 hours. 3. Plavix 75 mg p.o. daily. 4. Ferrous sulfate 325 mg p.o. daily. 5. Coreg 3.125 mg p.o. twice daily with meals, hold if heart rate less than 65 or systolic blood pressure less than 95. 6. Acarbose 25 mg p.o. twice daily. 7. Acarbose 50 mg p.o. at noon. 8. Levothroid 100 mcg p.o. every day before breakfast. 9. Prilosec 20 mg p.o. every night. 10. MiraLAX 17 g p.o. daily. 11. Betadine, apply topically every day to right heel. 12. Coumadin 1 mg p.o. daily. 13. Seroquel 50 mg p.o. at 7 o'clock and 1400 hours. 14. Seroquel 100 mg p.o. every night at bedtime. 15. Dulcolax 10 mg rectally every 24 hours. 16. Tylenol 650 mg suppository every 6 hours as needed p.r.n., pain. 17. Milk of magnesia 30 mL p.o. every 24 hours p.r.n., constipation. 18. Nitroglycerin tablet 0.4 mg sublingual as needed, chest pain. 19. Tramadol 50 mg p.o. 3 times daily. 20. [place] 5/325 one tab p.o. every 4 hours as needed, pain. 21. [place] 5/325 two tablets every 4 hours as needed, pain. 22. Magnesium oxide 400 mg p.o. twice daily. 23. Multivitamin 1 tablet p.o. daily. 24. Neurontin 300 p.o. twice daily. 25. Ascorbic acid 500 mg p.o. twice daily. 26. Xanax 0.25 mg p.o. every 8 hours p.r.n. anxiety and agitation. DISPOSITION: The patient is discharged to snf in a stable condition; however, prognosis is fair to poor. care home staff is to follow discharge orders as prescribed. Education about discharge including prescriptions, diet, activity, wound VAC changes, and other wound care instructions were given to the snf staff. JEANNIE SUMNER APRN FOR DEQUAN KNOX MD PATIENT'S NAME: IVETTE LOYA [facility] AGE: 85 Y [address] ROOM: [place] [address] [facility] ADMIT DATE: 08/14/2016 Discharge Summary DISCHARGE DATE: 08/29/2016 FAMILY PHYSICIAN: Denny Jackman MD ATTENDING PHYSICIAN: Dequan Knox TO/reshma /[id number] d: 09/06/16 0349 t: 09/06/16 1535, DISCHARGE SUMMARY
--- NOTE | ~2016-08-14 | CON ---
PATIENT'S NAME: IVETTE LOYA [facility] AGE: 85 Y [address] ROOM: [place] [address] LOCATION: [facility] [place] ADMIT DATE: 08/14/2016 Consultation DISCHARGE DATE: FAMILY PHYSICIAN: Denny Jackman MD ATTENDING PHYSICIAN: BRYANT KNOX DATE OF CONSULTATION: 08/15/2016 REFERRING PHYSICIAN: Sangita Coley APRN REASON FOR VISIT: Sacral pressure ulcer. HISTORY OF PRESENT ILLNESS: This is an 85-year-old male patient who was admitted to [facility] with a left AKA surgical wound dehiscence with cellulitis. He has a significant history of dementia with agitation, peripheral vascular disease, type 2 diabetes mellitus, CVA, hypertension, psoriasis, DVT, atrial fibrillation, and prostate cancer. I am familiar with the patient as I saw him during his last hospitalization on July 05, 2016. On July 05, 2016, the patient underwent a left AKA by Dr. Knox. He did not follow up with Dr. Knox postoperatively and a previous provider removed elizabeth too early to his stump. The patient presented for an evaluation to Dr. Knox's office on Sunday and was a direct admit for IV antibiotics. The patient has been residing at the [facility]. His is unsure how long he has had a sacral pressure ulcer. He did not have it when I saw him at the end of June. No treatment has been applied to the site. The patient is unable to provide history due his history of dementia. PAST MEDICAL HISTORY: Dementia, peripheral vascular disease, type 2 diabetes mellitus, history of CVA, essential hypertension, hypothyroidism, prostate cancer, left lower leg DVT, hypothyroidism, nephrolithiasis, history of polio, and urethral stricture. PAST SURGICAL HISTORY: Coronary artery bypass grafting in 2010, urethral stent, cardiac surgery, torn meniscus repair, and right wrist fracture with repair. FAMILY HISTORY: Per previous records, the patient's mother suffered from diabetes. SOCIAL HISTORY: The patient lives at the [facility]. His reports no tobacco, alcohol, or illicit drug use. PATIENT'S NAME: IVETET LOYA [facility] AGE: 85 Y [address] ROOM: [place] [address] LOCATION: [facility] [place] ADMIT DATE: 08/14/2016 Consultation DISCHARGE DATE: FAMILY PHYSICIAN: Denny Jackman MD ATTENDING PHYSICIAN: BRYANT KNOX ALLERGIES: NO MEDICATION ALLERGIES. CURRENT MEDICATIONS: Please refer to the medication administration record. REVIEW OF SYSTEMS: Unable to complete due to the patient's mentation and history of dementia. PHYSICAL EXAMINATION: VITAL SIGNS: Temperature 97.6, pulse 106, respirations 18, blood pressure 112/85, and pulse oximetry 94%. Height 5 feet, 7 inches and weight 66.3 kg. GENERAL: The patient is agitated in the bed and trying to take off his gown. He is kicking with any attempts to assess his legs. He does not follow commands. He is pale. HEENT: He would not open his mouth for visualization. NECK: Supple. CHEST: Thrashing in bed and would not allow me to put stethoscope on his chest. ABDOMEN: Flat. EXTREMITIES. Left AKA with a clean, dry, and intact dressing. No right lower leg edema noted. Capillary refill intact. SKIN: Sacral pressure ulcer measures 2.5 cm width x 3.5 cm length x 0.4 cm depth. Majority of wound bed is yellow slough with about 5% moist pink tissue noted. Periwound is slightly macerated with blanchable redness. Small amount of serous exudate noted. No fluctuance or induration noted. No odor noted. Tender to touch during palpation. To the patient's right great, second, and third toes he has intact brown necrosis. Unable to unroof, unable to measure as the patient is kicking in the bed. From what I can tell, periwounds are intact. Mycotic thick great right toenail. Blanchable redness to bilateral elbows. Right heel has a small intact brown scab with a fissure to the medial aspect. Unable to measure as the patient is thrashing around in bed. MUSCULOSKELETAL: Spontaneous movement of all extremities. LABORATORY DATA: White blood cell count 8.3, hemoglobin 10.3, hematocrit 32.8, and platelets 472. Sodium 135, potassium 4.5, chloride 99, bicarb 28, BUN 32, creatinine 1.2, glucose 164, albumin 2.5, procalcitonin 0.06, INR 1.1, lactate 1.9, and blood cultures showed no growth to-date. ASSESSMENT AND PLAN: Again, this is an 85-year-old male patient who is admitted to [facility] with a left above knee amputation wound dehiscence and cellulitis. 1. Stage III full thickness sacral pressure ulcer present on admission to [facility]. We will initiate pressure redistribution measures, nursing is to PATIENT'S NAME: IVETTE LOYA [facility] AGE: 85 Y [address] ROOM: [place] [address] LOCATION: [facility] [place] ADMIT DATE: 08/14/2016 Consultation DISCHARGE DATE: FAMILY PHYSICIAN: Denny Jackman MD ATTENDING PHYSICIAN: BRYANT KNOX turn him in bed q.2 h. [id number]. Aloe Popejoy moisture barrier will be applied to the site q.i.d. and p.r.n. stooling to the sacrum. If the patient has frequent stools, he may benefit from Sensi-Care. We will follow and make recommendations during his hospitalization stay. Dietary consult ordered. The patient is to have Ensure with meals. I discussed pressure redistribution measures and importance of protein intake with his . 2. Right heel un-stageable pressure ulcer, present on admission. Difficult to visualize due to the patient's agitation. He has no evidence of a deep tissue injury. Appears to be related to pressure. The patient also has a fissure from xerosis. We will initiate a footdrop boot. Compliance will be an issue, but hopefully he will allow nursing to keep it on. 3. Right great, second, and third toe necrotic scabs. Possibly pressure and/or diabetic related. The patient is unable to report a history and the does not know how they developed. He did note to have scabbing to his toes when I last saw him in June. At this point, it is not a priority, but I did discuss with the patient's the importance of orthotic footwear and checking his feet daily as he is a diabetic. For now since he does have underlying peripheral vascular disease, we will leave the scabs open to air. 4. Peripheral vascular disease. Continue Plavix. Vascular on-board. 5. Type 2 diabetes mellitus. The patient is on sliding scale insulin. 6. Dementia. Hospitalist managing. 7. Left above-knee amputation wound dehiscence with cellulitis. The patient is on Zosyn. Vascular and hospitalist managing. I would like to thank Sangita Coley APRN for this consultation. KAVITA CURRY APRN FOR MD ROSALIA STINSON/reshma /[id number] d: 08/16/16 0028 t: 09/05/16 1352, CONSULTATION REPORT
[~2016-08-14 16:15] MED LIST changes: -ASCORBIC ACID500 MG PO; -COUMADIN **IA1 MG PO; -DULCOLAX10 MG R; -FEOSOL325 MG PO; -MILK OF MA400 MG/5 M PO; -MIRALAX PO527 GM/BOT PO; -NEURONTIN300 MG PO; -NITROSTAT0.4 MG SL; -NORCO 5-325 TA1 EACH PO; -OSCAL + D500 MG PO; -TYLENOL325 MG PO; -ULTRAM50 MG PO; -XANAX0.25 MG PO
[2016-08-14 17:03] LABS: BASOPHIL % 0.5 %; EOSINOPHIL # 0.3 K/uL (0.0-0.5); HEMATOCRIT 32.8 % (33.0-50.0); HEMOGLOBIN 10.3 g/dL (11.0-16.0); IMMATURE GRANULOCYTE % 0.4 %; LYMPHOCYTE # 1.6 K/uL (0.8-4.0); LYMPHOCYTE % 19.4 %; MCH 27.8 pg (27.0-34.0); MCHC 31.4 gm/dL (32.0-36.5); MCV 88.6 fl (83.0-98.0); MONOCYTE # 0.7 K/uL (0.0-1.0); MONOCYTE % 8.7 %; MPV 8.9 fl (9.4-12.4); NEUTROPHIL # (ANC) 5.6 K/uL (1.4-9.0); NRBC % 0 /100WBC (0-0.00); PLATELET COUNT 427 K/uL (150-450); RDW-CV 14.6 % (11.9-14.6); WBC 8.3 K/uL (4.0-11.0)
[2016-08-14 17:22] LABS: ALBUMIN 2.5 gm/dL (3.5-5.0); ANION GAP 12.5 (10.0-19.0); CALCIUM 8.6 mg/dL (8.5-10.5); CREATININE 1.2 mg/dL (0.6-1.3); POTASSIUM 4.5 mMol/L (3.7-5.1); TOTAL BILIRUBIN 0.3 mg/dL (0.0-1.5); TOTAL PROTEIN 7.4 g/dL (6.0-8.4)
--- NOTE | 2016-08-14 17:26 | NUR ---
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 to be attending. No allergies. Pt resides at the [facility]. Hx L)AKA in Jun 2016,CABG,htn,hypercholest,PVD, prostate CA,urgency/frequency,hx kidney stones,dementia,DM. Pt's helpful in supplying medical hx as pt has dementia and can get agitated. Pt is full lift. Needs help with all ADL's. reports he also has an open sore on his bottom.
[2016-08-14] MEDS ORDERED: FEOSOL325 MG PO (21:04)
[2016-08-14] MEDS ORDERED: COUMADIN **IA1 MG PO (21:04)
[2016-08-14] MEDS ORDERED: MIRALAX PO527 GM/BOT PO (21:06)
[2016-08-14] MEDS ORDERED: NEURONTIN300 MG PO (21:09)
[2016-08-14] MEDS ORDERED: ASCORBIC ACID500 MG PO (21:11)
[2016-08-14] MEDS ORDERED: OSCAL + D500 MG PO (21:11)
[2016-08-14] MEDS ORDERED: ULTRAM50 MG PO (21:12)
[2016-08-14] MEDS ORDERED: TYLENOL325 MG PO ×2 (21:13→21:20)
[2016-08-14] MEDS ORDERED: DULCOLAX10 MG R (21:14)
[2016-08-14] MEDS ORDERED: MILK OF MA400 MG/5 M PO (21:15)
[2016-08-14] MEDS ORDERED: NITROSTAT0.4 MG SL (21:16)
[2016-08-14] MEDS ORDERED: NORCO 5-325 TA1 EACH PO ×2 (21:17→21:19)
[2016-08-14] MEDS ORDERED: XANAX0.25 MG PO (21:22)
[2016-08-15 06:25] LABS: INR - (THERAPEUTIC) 1.1 (0.9-1.1); PROTIME 11.4 SECONDS (9.6-11.1)
--- NOTE | 2016-08-15 07:08 | NUR ---
Significant Event:PT IS VERY LETHARGIC AT THIS TIME. PT STATES THAT HE HAS DEMENTIA BUT HAS BEEN MORE IRRITABLE AND COMBATIVE LATELY. DRESSING TO LEFT LEG HAD TO BE REDRESSED SEVERAL TIMES DUE TO HOSPITALIST LOOKING AT IT AND THEN PT PULLING IT OFF. INCISION IS GAPPING AND BONE IS VISIBLE. MINIMAL DRAINAGE. PT ON TELE W/ CALL @ 0500 INFORMING PT FLIPPED INTO A-FIB, EVENTUALLY GOT ORDER FOR EKG. NEED WOC CONSULT FOR COCCYX WOUND. DOOPLER TO RIGHT FOOT. PT BECAME MORE ALERT BUT ONLY ORIENTED TO SELF AROUND 2200. PT HAD MULTIPLE ATTEMPTS TO GET OUT OF BED, BED ALARM SET ON SECOND SETTING. ACCUCHECKS AC/HS, BS WAS 197 ON MILD SS, NO INSULIN GIVEN. PT MADE NPO DUE TO LETHARGY BUT WHEN PT WAS AWAKE, PT REFUSED ORAL MEDS. IV TO L WRIST HAS FLUIDS @ 50ML/HR. PT GETTING ZOSYN, 0500 DOSE STARTED LATE DUE TO PHARMACY ENTRY ERROR. PT'S WILL BE HERE SOMETIME THIS MORNING. Follow up:BED ALARM ON AT ALL TIMES.
--- NOTE | 2016-08-15 17:17 | NUR ---
Significant event: Patient is disoriented. VSS. ON room air. IV to left forearm/wrist, has coban around to keep pt from pulling it out. Is to be on tele, refuses to keep it on, continuously pulls all of them off as soon as you put them on. Have tried several things to keep him from pulling them off. Has dressing to left stump. Does have pajama pants on to help keep him from pulling of the dressing. Has worked so far. Is incontinent of urine. Has briefs on. Is bedrest. Takes meds crushed in applesauce. Does get easily agitated and is very restless. Did have xanax this morning. Has helped through the day. Is a 1-1 feeder. Encourage a staff member to feed him, as patient does seem to get agitated easier with the . is at bedside. Has large open area to coccyx area. WOC saw today.MOisture barrier. Are to try to keep off bottom as much as possible. Foot drop boot to right lower extremity. Has been cooperative with cares today.
--- NOTE | 2016-08-16 04:44 | NUR ---
Significant Event:pt is oriented too self only. pt on tele with no calls other than that he frequently pulled off the leads. pt has been flipping in and out of md maya's aware. pt has dressing to l stump that has dehissed and is open to the bone. iv infiltrated, new one started to r wrist has fluids running @ 50 but will have 0500 dose of zosyn running. pt is a 1:1 feeder, needs to be staff member that helps, not . meds need crushed and in applesauce. pt can get irritable and combative at times. pt is to have foot drop boot to r foot but not obtained yesterday. accucheckes ac/hs, bs was 220 last night and 4 units given. plan for surgery on . pt can be hypotensive at times, sbp in the 90's. Follow up:surgery on
[2016-08-16 06:27] LABS: INR - (THERAPEUTIC) 1.1 (0.9-1.1)
--- NOTE | 2016-08-16 16:00 | NUR ---
SPOKE TO PATIENT'S SPOUSE REGARDING CM AND OUR ROLE. PATIENT IS A RESIDENT AT [facility]. THE PLAN IS FOR HIM TO RETURN THERE ONCE HE IS READY FOR DISCHARGE. CM WILL FOLLOW NEEDED.
--- NOTE | 2016-08-16 16:50 | NUR ---
Significant event: Patient is alert to self. VSS. on room air. IV to right wrist, coban around to keep in place. Patient gets very restless and figidity. Has dressing to left stump, rewrapped frequently today. Tele replaced multiple times. Moisture barrier to bottom with frequent repositioning as patient will allow. Takes meds crushed in applesauce. Is on ACHS with moderate scale. Is a 1-1 feeder, staff to assist with feeding preferred. Diet changed to pureed. Don't use straws for drinking. Foot drop boot in room. Plans for surgery tomarrow. Consents are signed by . Is to be NPO after midnight. Cooperative with cares.
--- NOTE | 2016-08-17 05:22 | NUR ---
Significant Event: Patient is oriented to self only. IV to R) wrist with Zosyn running. Dressing to left leg stump. Wound to coccyx with moisture barrier. Takes meds crushed with applesauce. 2100 and 2300 PO meds not given due to drowsy patient. NPO for surgery today. 1:1 feeder. ACHS moderate scale. Puree diet, no straws. Foot drop on patient's right foot. Patient has been resting most of the night. Has been calm throughout night. Follow up: Surgery today for left stump. Consents signed.
[2016-08-17 05:42] LABS: INR - (THERAPEUTIC) 1.1 (0.9-1.1); PROTIME 12.1 SECONDS (9.6-11.1)
[2016-08-17 13:04] LABS: BASOPHIL % 0.4 %; EOSINOPHIL # 0.2 K/uL (0.0-0.5); EOSINOPHIL % 2.7 %; HEMATOCRIT 33.3 % (33.0-50.0); HEMOGLOBIN 10.6 g/dL (11.0-16.0); IMMATURE GRANULOCYTE % 0.3 %; LYMPHOCYTE # 1.1 K/uL (0.8-4.0); MCH 27.7 pg (27.0-34.0); MCHC 31.8 gm/dL (32.0-36.5); MCV 86.9 fl (83.0-98.0); MONOCYTE # 0.9 K/uL (0.0-1.0); MPV 8.9 fl (9.4-12.4); NEUTROPHIL # (ANC) 5.4 K/uL (1.4-9.0); NEUTROPHIL % 70.6 %; NRBC % 0 /100WBC (0-0.00); RBC 3.83 M/uL (3.50-5.50); RDW-CV 14.8 % (11.9-14.6); WBC 7.7 K/uL (4.0-11.0)
[2016-08-17 13:11] LABS: PLATELET COUNT 318 K/uL (150-450)
[2016-08-17 13:19] LABS: BLOOD UREA NITROGEN 12 mg/dL (6-24); CALCIUM 8.2 mg/dL (8.5-10.5); CHLORIDE 104 mMol/L (96-110); CO2 27 mMol/L (22-32); CREATININE 0.9 mg/dL (0.6-1.3); ESTIMATED GFR (MDRD EQUATION) > 60; SODIUM 139 mMol/L (135-145)
--- NOTE | 2016-08-17 17:45 | NUR ---
Oriented to self. VSS, on RA. PT d/c'd IV. New IV to RW w/GBR and IVF. L) amputee w/dehisced wound. To be DNR after surgery. NPO since midnight. Restless, confused, sometimes uncooperative/combative. No oral meds given this a.m. prior to surgery. at bedside. On tele, but does not leave it on; hx afib. Does not like brief on; will undress himself to get it off.
[2016-08-17 18:05] LABS: ANION GAP 13.8 (10.0-19.0); BLOOD UREA NITROGEN 12 mg/dL (6-24); CALCIUM 8.1 mg/dL (8.5-10.5); CHLORIDE 107 mMol/L (96-110); CO2 24 mMol/L (22-32); CREATININE 0.9 mg/dL (0.6-1.3); ESTIMATED GFR (MDRD EQUATION) > 60; POTASSIUM 3.8 mMol/L (3.7-5.1); SODIUM 141 mMol/L (135-145)
--- NOTE | 2016-08-17 18:56 | NUR ---
Significant Event: Alert, disoriented x3; restless, continually pulling at gown et any cords that can be reached by patient. Wound vac intact to L) stump; draining bloody drainage. VSS SBP 97, HR 100 on room air. Unable to state if in pain but resting quietly despite pulling at things. Reposition side to side every 2 hours; bilateral wrist restraints in place. Follow up: WOC consult for pressure ulcer
--- NOTE | 2016-08-18 04:40 | NUR ---
Pt alert to self only. vss on ra, afebrile. voided 2 large voids, 1 smear of green bm. norco and tramadol given at hs. norco given vs am scheduled apap. crushed pills in appelsauce-took no problems. wound vac with serous output still. restraints remain in place as he con't to attempt to pull at wound vac. stayed th night. woc saw pt yesterday- aloe vesta to coccyx pressure ulce qid and prn-may need to use sensi care as pt is incontinent plan: con't current plan of care
[2016-08-18 05:24] LABS: BASOPHIL % 0.3 %; EOSINOPHIL # 0.2 K/uL (0.0-0.5); EOSINOPHIL % 2.6 %; HEMATOCRIT 30.4 % (33.0-50.0); HEMOGLOBIN 9.4 g/dL (11.0-16.0); IMMATURE GRANULOCYTE % 0.4 %; LYMPHOCYTE # 1.2 K/uL (0.8-4.0); LYMPHOCYTE % 16.2 %; MCH 27.3 pg (27.0-34.0); MCHC 30.9 gm/dL (32.0-36.5); MCV 88.4 fl (83.0-98.0); MONOCYTE # 0.9 K/uL (0.0-1.0); MONOCYTE % 12.3 %; MPV 9.1 fl (9.4-12.4); NEUTROPHIL # (ANC) 5.2 K/uL (1.4-9.0); NEUTROPHIL % 68.2 %; NRBC % 0 /100WBC (0-0.00); RBC 3.44 M/uL (3.50-5.50); RDW-CV 14.9 % (11.9-14.6); WBC 7.6 K/uL (4.0-11.0)
[2016-08-18 05:25] LABS: PLATELET COUNT 241 K/uL (150-450)
[2016-08-18 05:31] LABS: INR - (THERAPEUTIC) 1.26 (0.92-1.07); PROTIME 13.3 SECONDS (9.8-11.4)
[2016-08-18 05:40] LABS: ALBUMIN 2.1 gm/dL (3.5-5.0); ANION GAP 13.8 (10.0-19.0); BLOOD UREA NITROGEN 10 mg/dL (6-24); CALCIUM 7.6 mg/dL (8.5-10.5); CHLORIDE 107 mMol/L (96-110); CO2 23 mMol/L (22-32); CREATININE 0.7 mg/dL (0.6-1.3); ESTIMATED GFR (MDRD EQUATION) > 60; MAGNESIUM 1.4 mg/dL (1.3-2.6); PHOSPHORUS 2.5 mg/dL (2.5-4.9); POTASSIUM 3.8 mMol/L (3.7-5.1); SODIUM 140 mMol/L (135-145)
--- NOTE | 2016-08-18 13:32 | NUR ---
A-NUTRITION F/U WOUND VAC TO L)STUMP. STAGE III SACRAL PU. IN WRIST RESTRAINTS D/T PULLING AT WOUND VAC, ETC. (+)BM TODAY. LABS: NA 140, K+ 3.8, GLU 140, BUN 10, EXCEL EXPERT 0.7, ALB 2.1 MEDS: MORPHINE, NORCO, PRN COLACE, ZOFRAN DIET RX: FULL LIQUIDS. GLUCERNA BID AT B/L AND RAMON BID AT B/D. PT IS FED; PER RN REPORT PT ATE/DRANK WELL FOR BREAKFAST THIS AM. EST NUTR NEEDS: 3977-3212 KCALS AND 79-92 GM PROTEIN D-AT NUTRITION RISK W/INCREASED NUTRIENT NEEDS R/T HEALING AEB WOUND VAC TO L)STUMP, STAGE III SACRAL PU. I-CONTINUE W/CURRENT SUPPLEMENTS M/E-GOAL: PO INTAKE >/=50% BY NEXT F/U 1)F/U DIET RX, PO INTAKE, SUPPLEMENT, AND POC (3-5 DAYS) 2)ASSIST NEEDED
--- NOTE | 2016-08-18 16:45 | NUR ---
Significant Event: Alert, oriented to self only. VSS, SBPs 110-120s, HRs 80-110s, on room air. No obvious indicators of pain; recieved scheduled medication as ordered. Patient has slept the majority of the shift; repositioned every 2 hours side to side. WOC up to change dressing to L) stump today; will change again on Sunday. Bilateral wrist restraints removed. Follow up: coumadin orderd by hospitalist if okay with Dr. Knox
--- NOTE | 2016-08-19 03:04 | NUR ---
Pt was pretty lethargic until ~ 0100ish. pt then became aggitated with gown and kept yelling "cut it off" and con't to pull at it and tele wires. at this time he was given 2 norco as he had not had anything for pain d/t lethargy. Pt is q2 turn d/t stage 3 pressure ulcer to coccyx. con't with aloe vesta to coccyx qid and prn. Wound vac in place to left stump with minimal output tonight. no hs meds or coumadin last night d/t lethargy. Con't on BRIDGET-zosyn. Has developed a cough tonight that he did not have last noc. Takes pills crushed in applesauce. FSBS 186 at hs-did not treat d/t lethargy and not eating. vs-sbp occasionally low-80-90's sbp, afebrile, con't in afib rvr with rates 90-120's-depending on aggitation level. plan: con't current plan of care
[2016-08-19 04:53] LABS: BASOPHIL % 0.3 %; EOSINOPHIL # 0.1 K/uL (0.0-0.5); EOSINOPHIL % 1.1 %; HEMATOCRIT 29.1 % (33.0-50.0); HEMOGLOBIN 9.1 g/dL (11.0-16.0); IMMATURE GRANULOCYTE % 0.3 %; LYMPHOCYTE % 13.1 %; MCH 27.3 pg (27.0-34.0); MCHC 31.3 gm/dL (32.0-36.5); MCV 87.4 fl (83.0-98.0); MONOCYTE # 0.9 K/uL (0.0-1.0); MPV 9.3 fl (9.4-12.4); NEUTROPHIL # (ANC) 5.6 K/uL (1.4-9.0); NEUTROPHIL % 73.2 %; NRBC % 0 /100WBC (0-0.00); PLATELET COUNT 223 K/uL (150-450); RBC 3.33 M/uL (3.50-5.50); RDW-CV 14.8 % (11.9-14.6); WBC 7.6 K/uL (4.0-11.0)
[2016-08-19 05:05] LABS: INR - (THERAPEUTIC) 1.42 (0.92-1.07)
--- NOTE | 2016-08-19 19:49 | NUR ---
Significant Event: Patient has been restless throughout the day. Disoriented to time/place. Did pull out peripheral IV once. Attempted to place another IV but patient was combative and hitting/kicking staff. Dr. Clark notified and he ordered 0.5 mg IM Ativan x1. This did not successfully calm down patient, however flight nurse was able to place a peripheral IV. Order was then obtained for mitten restraints. Patient has been repositioned q.2hr. Vital signs are stable, continues on room air. Refused to take most of his pills today, Dr. Knox aware. Woundvac to left stump in place. at bedside. Follow up: Continue to monitor per plan of care.
[2016-08-20 03:15] LABS: BASOPHIL % 0.2 %; EOSINOPHIL # 0.1 K/uL (0.0-0.5); EOSINOPHIL % 0.5 %; HEMATOCRIT 31.9 % (33.0-50.0); HEMOGLOBIN 10.2 g/dL (11.0-16.0); IMMATURE GRANULOCYTE # 0.1 K/uL (0.0-0.3); IMMATURE GRANULOCYTE % 0.4 %; LYMPHOCYTE # 0.8 K/uL (0.8-4.0); LYMPHOCYTE % 6.1 %; MCH 27.5 pg (27.0-34.0); MONOCYTE # 0.7 K/uL (0.0-1.0); MONOCYTE % 5.7 %; NEUTROPHIL # (ANC) 11.1 K/uL (1.4-9.0); NEUTROPHIL % 87.1 %; NRBC % 0 /100WBC (0-0.00); PLATELET COUNT 241 K/uL (150-450); RBC 3.71 M/uL (3.50-5.50); RDW-CV 14.9 % (11.9-14.6); WBC 12.7 K/uL (4.0-11.0)
[2016-08-20 03:26] LABS: INR - (THERAPEUTIC) 1.37 (0.92-1.07); PROTIME 14.4 SECONDS (9.8-11.4)
--- NOTE | 2016-08-20 04:32 | NUR ---
VS- HR afib RVR 90-170's, SB 90-120's, spiked 102.9 fever on 3rd assessement, o2 was 100% at start now low 90's on ra, RESP- occasionaly apenic. Pt was very alert at the start of shift. He became more lethargic as the shift went on. 2norco were given at 1830. Pt is q2 turn. 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 Has had an increase in cough thorughout the night. Had stat chest xray, blood cultures, RT for RSS, and vanco initiated. Fever remains at 102 post apap suppository- pt unable to wake up enough to swallow safely. Cont in mitten restraints d/t when he is awake he pulls at everything. Wound vac to L Stump hardly any output. 2 large incontinent voids, no bm this shift. at bedside all noc. Plan: con't iv abx, would benifit from palliative consult.
[2016-08-20 14:33] LABS: ANION GAP 14.5 (10.0-19.0); BLOOD UREA NITROGEN 10 mg/dL (6-24); CALCIUM 8.2 mg/dL (8.5-10.5); CHLORIDE 107 mMol/L (96-110); CO2 24 mMol/L (22-32); CREATININE 0.9 mg/dL (0.6-1.3); ESTIMATED GFR (MDRD EQUATION) > 60; MAGNESIUM 1.7 mg/dL (1.3-2.6); PHOSPHORUS 2.6 mg/dL (2.5-4.9); POTASSIUM 3.5 mMol/L (3.7-5.1); SODIUM 142 mMol/L (135-145)
--- NOTE | 2016-08-20 16:29 | NUR ---
Significant event: Patient Drowsy at times, disoriented x. Speech mumbled most of the time. Opens eyes to voice, withdraws to pain, pupils equal reactive to light. HR 65-100's, SR/Afib. At 0700 patient had 15 seconds of HR in 30's. D/C'd all digoxin. [place] and neurotin d/c'd. Lungs slightly coarse in RLL in AM, clear now. Cough present. RA. Afebrile. Replacing Mg and K+, giving D5W at 100ml/hr for total of 500 ml. Only giving medication if patient alert enough. Has not been alert enough to eat breakfast of lunch. Sensicare to bottom. Follow Up: Continue current POC
--- NOTE | 2016-08-21 05:30 | NUR ---
Pt has been alert and hollering all night minus 2 hours. pt remains in mitten restraints. gave 1 mg of ivp morphine for continued complaints of pain. gave po apap as scheduled. new iv started this am in rac. gave dulcolax suppository as pt con't to only have smears. did have small round hard bm prior to suppository. attempted to swab pts mouth as it is severely dry and he clamped up and would have nothing to do with it. managed to catch 300 ml in urinal x1, voided 1 other time mod. wound vac with minimal output. still. Plan: wound vac to be changed today
[2016-08-21 05:41] LABS: ANION GAP 14.1 (10.0-19.0); BLOOD UREA NITROGEN 12 mg/dL (6-24); CALCIUM 7.7 mg/dL (8.5-10.5); CHLORIDE 107 mMol/L (96-110); CO2 24 mMol/L (22-32); ESTIMATED GFR (MDRD EQUATION) > 60; INR - (THERAPEUTIC) 1.71 (0.92-1.07); POTASSIUM 4.1 mMol/L (3.7-5.1); PROTIME 18.1 SECONDS (9.8-11.4); SODIUM 141 mMol/L (135-145)
[2016-08-21 05:46] LABS: BASOPHIL % 0.2 %; EOSINOPHIL # 0.4 K/uL (0.0-0.5); EOSINOPHIL % 3.6 %; HEMATOCRIT 28.6 % (33.0-50.0); IMMATURE GRANULOCYTE % 0.3 %; LYMPHOCYTE # 1.2 K/uL (0.8-4.0); LYMPHOCYTE % 12.2 %; MCH 27.4 pg (27.0-34.0); MCHC 31.5 gm/dL (32.0-36.5); MCV 86.9 fl (83.0-98.0); MONOCYTE # 0.6 K/uL (0.0-1.0); MONOCYTE % 6.4 %; MPV 9.7 fl (9.4-12.4); NEUTROPHIL # (ANC) 7.6 K/uL (1.4-9.0); NEUTROPHIL % 77.3 %; NRBC % 0 /100WBC (0-0.00); PLATELET COUNT 222 K/uL (150-450); RBC 3.29 M/uL (3.50-5.50); RDW-CV 15.1 % (11.9-14.6); WBC 9.8 K/uL (4.0-11.0)
--- NOTE | 2016-08-21 06:28 | NUR ---
Pt alert and agittated all noc. Pt vss on ra, afebrile. new iv in rac-5 pokes later. pt given scheduled apap. pt also given 2mg ivp morphine as he continued to holler out that he was in pain. mittens in place all noc. plan: wound vac to be changed today.
--- NOTE | 2016-08-21 15:14 | NUR ---
A - NUT F/U. AGITATED. IN MITTEN RESTRAINTS. WOUND VAC L) STUMP S/P STUMP REVISION. STAGE III SACRAL PU - UNCHANGED. UNSTAGABLE AREAS TO R) HEEL AND TOES. ACUTE ENCEPHALOPATHY. CONSTIPATION - MEDS GIVEN. SEVERE PCM. MOUTH DRY - RN SWABBING. 1:1 @ MEALS. 1-2+ EDEMA. HASN'T BEEN ALERT ENOUGH TO EAT AT TIMES. LABS: ACCUCHECK REAS->200, GLU 133. MEDS: ZOSYN, SYNTHROID, SEROQUEL, VANCO, BOWEL/NAUSEA, SSI, FLORASTOR, PROTONIX, D5NS @ 50. DIET: WAS FULL LIQUID. INTAKE: MOSTLY REF-BITES. GLUCERNA @ B&L, RAMON @ B&D - DID DRINK RAMON THIS AM. DIET ADVANCED TO PUREED THIS PM. NEEDS: [id number] KCAL, 79-92 G PRO D - INADEQUATE NUTRIENT INTAKE R/T DECREASED APPETITE, ALTERED MENTAL STATUS AEB INTAKE RECORD, LETHARGY AT MEALS. INCREASED PRO NEEDS R/T HEALING AEB STAGE III PU, L) STUMP WOUND. I - GOAL FOR INCREASED ORAL INTAKE. WILL INCREASE GLUCERNA TO TID. PT WOULD BENEFIT FROM ENTERAL NUTRITION. REC GLUCERNA 1.2 @ 75 ML/HR W/ 175 ML WATER Q6 HRS TO PROVIDE 2160 KCAL, 108 G PRO, 1449 ML FREE WATER (+ FLUSH). M/E - WILL MONITOR POC, INTAKE, SKIN F/U IN 2-4 DAYS.
--- NOTE | 2016-08-21 19:23 | NUR ---
Significant event: Alert, disoriented. Combative at times. Morphine for pain at 0900. Scheduled tylenol also given. Patient seemed to be more calm after morphine and seroquel given. Wound vac changed today, per wound nurse site looks well, granulated tissue. R) buttock ulcer continues, sensicare to area. Turning frequently. Had 3 BM's. RA, lungs slightly coarse, cough present. Speech seen patient, now on pureed, thin liquid diet. Lost IV access, attempted midline, got a L) FA 22 g IV. Follow Up: Continue current POC, Hospitalist now primary.
--- NOTE | 2016-08-22 05:21 | NUR ---
Pt was very combative at the start of shift. continued to be combative throughout shift until roughly 4am. VSS on RA, afebrile. HR 70-100's, nsr/afib. contintues with mitten restraints on at all times. Currently in depends- incontinent of bowel and bladder. wound vac to left stump with minimal out put. rewrapped as kyle and gauze underneath were soild. Given ivp morphine x2 for severe agitation and patient hollering out he was in pain but would not take his oral meds. Pt refused hs meds. Refused to eat. No insulins were given 1700 or 2100 dose d/t pt refusing to eat. Pressure ulcer to coccyx is now green in color versus yellow like it was last noc. bottom continues to be red d/t incontinence. Sensicare over pressure ulcer per woc aloe vest to bottom. Foot drop boot on for R heel. Pt is now hoarse d/t screaming out off and on for 24+ hours straight. Pt has slept maybe 1 hour total tonight. Iv in LFA cobaned. Intermittent IV abx-zosyn. Abilio signed off. had multiple bms in the last 24 hours d/t dulcolax suppository given 4/10 am. Plan: Con't current plan of care. Question when return to [facility].
[2016-08-22 05:46] LABS: HEMOGLOBIN 8.7 g/dL (11.0-16.0); MCH 27.4 pg (27.0-34.0); MCHC 31.1 gm/dL (32.0-36.5); MCV 88.1 fl (83.0-98.0); MPV 9.4 fl (9.4-12.4); PLATELET COUNT 233 K/uL (150-450); RBC 3.18 M/uL (3.50-5.50); RDW-CV 14.9 % (11.9-14.6); WBC 8.7 K/uL (4.0-11.0)
[2016-08-22 05:56] LABS: INR - (THERAPEUTIC) 2.2 (0.92-1.07); PROTIME 23.3 SECONDS (9.8-11.4)
[2016-08-22 06:03] LABS: ANION GAP 11.8 (10.0-19.0); BLOOD UREA NITROGEN 15 mg/dL (6-24); CHLORIDE 110 mMol/L (96-110); CO2 25 mMol/L (22-32); CREATININE 0.9 mg/dL (0.6-1.3); ESTIMATED GFR (MDRD EQUATION) > 60; MAGNESIUM 1.7 mg/dL (1.3-2.6); PHOSPHORUS 2.6 mg/dL (2.5-4.9); POTASSIUM 3.8 mMol/L (3.7-5.1); SODIUM 143 mMol/L (135-145)
[2016-08-22 06:35] LABS: ABSOLUTE NEUTROPHIL CT (ANC) 7.6 K/uL (1.4-9.0); LYMPHOCYTE # 0.8 K/uL (0.8-4.0); LYMPHOCYTE % 9 %; MONOCYTE # 0.2 K/uL (0.0-1.0); SEGMENTED NEUTROPHIL # 7.6 K/uL (1.4-9.0); SEGMENTED NEUTROPHIL % 87 %
--- NOTE | 2016-08-22 10:40 | NUR ---
Introduced self and role of care management to patient's . Patient recently has been at [facility] and per his room is on hold there. She is concerned if they can meet his needs at [place]. She says [place] isn't to far and she would be open to [place]. His PCP is in [place]. I will check to see if the facilities in [place] and [place] are able to manage the Wound VAC. Will follow.
--- NOTE | 2016-08-22 16:25 | NUR ---
SIGNIFICANT EVENT: Patient remains on Room Air. Appeptite is minimal. Midline IV placed to right medial upper arm today. LS are clear and diminished. Pt had 4 loose stools today, aloe and sensicare applied frequently. Remains in mitten restraints. Repositioned frequently. Cooperative with cares.
--- NOTE | 2016-08-23 04:23 | NUR ---
Pt didn't sleep at all tonight. con't to be combative with staff when it comes to cleaning him up. His bottom is extremely red. Pressure ulcer to coccyx is open with yellow green tissue- stage 3. stump rewrapped as pt managed to push wrap off. remains in mittens as he continues to attempt to pick at stuff even with mittens on. 3 loose bms, 1 just large void. refused hs pills. refused oral intake. refused oral cares. Plan: Continue current plan of care
[2016-08-23 05:33] LABS: HEMATOCRIT 27.5 % (33.0-50.0); HEMOGLOBIN 8.6 g/dL (11.0-16.0); MCH 27.2 pg (27.0-34.0); MCHC 31.3 gm/dL (32.0-36.5); MPV 9.6 fl (9.4-12.4); PLATELET COUNT 243 K/uL (150-450); RBC 3.16 M/uL (3.50-5.50); WBC 8.5 K/uL (4.0-11.0)
[2016-08-23 05:42] LABS: INR - (THERAPEUTIC) 1.97 (0.92-1.07); PROTIME 20.8 SECONDS (9.8-11.4)
[2016-08-23 06:01] LABS: ABSOLUTE NEUTROPHIL CT (ANC) 5.8 K/uL (1.4-9.0); BANDED NEUTROPHIL # 0.3 K/uL (0.0-0.1); BANDED NEUTROPHILS % 4 %; LYMPHOCYTE # 1.9 K/uL (0.8-4.0); LYMPHOCYTE % 22 %; MONOCYTE # 0.3 K/uL (0.0-1.0); SEGMENTED NEUTROPHIL # 5.4 K/uL (1.4-9.0); SEGMENTED NEUTROPHIL % 64 %
--- NOTE | 2016-08-23 13:25 | NUR ---
A - NUT F/U. STAGE III SACRAL PU - UNCHANGED. SEVERE PCM - LONG-STANDING. MITTEN RESTRAINTS. REFUSING ORAL INTAKE AT TIMES. LOOSE STOOLS. WOUND VAC l0 STUMP. 1:1 @ MEALS. LABS: ACCUCHECK WNL-REAS, GLU 133, ALB 2.0, HGB/HCT 8.6/27.5 MEDS: AUGMENTIN, SEROQUEL, BOWEL/NAUSEA, SSI, FLORASTOR, FEOSOL, SYNTHROID, PROTONIX, D5NS. DIET: PUREED. INTAKE: 10-50% x 4 MEALS (08/21 AND 08/22). GLUCERNA TID, RAMON BID. NEEDS: [id number] KCAL, 79-92 G PRO D - INADEAQUATE NUTRIENT INTAKE R/T DECREASED APPETITE AEB INTAKE RECORD. INCREASED NUTRIENT NEEDS R/T HEALING AEB STAGE III SACRAL PU. I - GOAL FOR INCREASED NUTRIENT INTAKE. PT UNABLE TO MEET NEEDS ORALLY. TF RECS MADE 08/21. PT WOULD CONTINUE TO BENEFIT FROM GLUCERNA 1.2 @ 75 ML/HR W/ 175 ML WATER Q6 HRS. M/E - WILL MONITOR POC, INTAKE, SKIN F/U IN 2-4 DAYS.
--- NOTE | 2016-08-23 17:14 | NUR ---
Spoke with Deedee at [facility] and she says they do Wound Vac, but she also thinks [facility] does also. She says if [facility] is not able to meet his needs they would be willing to consider him. Spoke with Landon CRUZ at [facility] this afternoon. He says he will have to check and see if they do Wound VACs or not. Updated faxed to [facility]. Will follow.
--- NOTE | 2016-08-23 17:52 | NUR ---
Significant Event: Alert, oriented to self only; continues to be restless et fidgety in the bed. VSS, SBPs 140-150s, HRs 70-90s, on room air. 2 mg of morphine given x2, last at 1122, for restlessness et patient stating that was hurting; patient calmed et appeared to rest for a short amount of time. WOC up today; wound vac dressing changed to L) stump; canister also changed. R) mitt restraint removed at 1325; from approximately [id number] on patient has been pulling at wires et other mitt restraint; has gotten L) mitt restraint off x1, was reapplied et has pulled telemetry off multiple times. Seroquel given at 1708 for restlessness; unsure of how much patient actually got as spit out some of the applesauce with the crushed meds. Patient took medications without difficulty this AM, since that time patient has refused to take meds. He will either not open mouth or will take applesauce/medication mixture et spit it out immediately. Patient has only take bites of meals. Reposition every 2 hours while in bed; however patient is constanlty fidgeting in the bed. Patient is to be upright in chair for all meals but with excessive amount of fidgeting would consider a safety issue as patient would slide out of chair. Follow up: may go to [facility] without tele; stool specimen needed for c-diff
--- NOTE | 2016-08-24 04:47 | NUR ---
Significant Event:VSS.RA.PT RESTLESS THIS SHIFT. SLEPT OFF/ON. TURN Q2H/PRN. PT L MITT OFF @ 2455, 15 MIN ROUNDING WITH PULLING AT PILLOWS/BLANKET, RE-ORIENTATION EACH TIME. SIPS OF WATER AND MILK, MEDS IN ICE CREAM. PT REFUSING TYLENOL(0500). MIDLINE TO RUE WRAPPED IN [place]. NO TELE PER HOSPITALIST, OK TO TRANSFER TO [facility]. L STUMP WOUND VAC INTACT. INCONITNENT OF STOOL AND URINE Follow up: CONT W/PLAN OF CARE
[2016-08-24 05:46] LABS: BASOPHIL % 0.3 %; EOSINOPHIL # 0.3 K/uL (0.0-0.5); EOSINOPHIL % 3.6 %; HEMOGLOBIN 9.3 g/dL (11.0-16.0); IMMATURE GRANULOCYTE % 0.4 %; LYMPHOCYTE # 1.5 K/uL (0.8-4.0); LYMPHOCYTE % 15.8 %; MCH 27.1 pg (27.0-34.0); MCV 87.5 fl (83.0-98.0); MONOCYTE # 0.8 K/uL (0.0-1.0); MONOCYTE % 7.9 %; MPV 9.7 fl (9.4-12.4); NEUTROPHIL # (ANC) 6.9 K/uL (1.4-9.0); NRBC % 0 /100WBC (0-0.00); PLATELET COUNT 271 K/uL (150-450); RBC 3.43 M/uL (3.50-5.50); RDW-CV 15.4 % (11.9-14.6); WBC 9.5 K/uL (4.0-11.0)
[2016-08-24 05:52] LABS: INR - (THERAPEUTIC) 1.58 (0.92-1.07); PROTIME 16.7 SECONDS (9.8-11.4)
--- NOTE | 2016-08-24 12:05 | NUR ---
Called and spoke with Landon at [facility]. Asked him if he found out if they can manage the wound VAC and told him patient probably ready to return to them tomorrow. He says he had not had a chance to talk with the D.O.N. yet but he would and would call me back. Will follow.
--- NOTE | 2016-08-24 14:09 | NUR ---
reviewed student charting and on the floor from [id number] gemma sigala-ccc
--- NOTE | 2016-08-24 16:15 | NUR ---
Several calls with Xena CLAYTON at [facility]. She says they can not get the Wound VAC and needed equipment in by tomorrow. She also is concerned he has not been out of restraints long enough. She has questions regarding the Wound VAC. Talked with Ita from [facility] and she called and spoke with Xena and got her the information she needed to get the Wound Vac ordered etc. Ita says Xena thought it would be Sunday before they would have equipment. Ita says could consider wet to dry dressing changes over the weekend at the [facility]. Talked to Dr. Edmonds and updated her and she says to ask Dr. Knox about the Wound Vac versus wet to dry dressing changes. Called Dr. Knox and he wants patient to have the wound VAC. Faxed updated information to Xena at her request. Several more calls with Xean and she talks with Ita again. Xena calls back and says they can accept patient on Sunday. She says Wound VAC and supplies should get there sometime on Sunday, but she also wants a staff member to come and do a dressing change with [facility] and they can't do that until Sunday. She says they will be here Tuesday 08/29 at 0930 to pick patient up and meet with [facility]. Note on chart for Will follow.
--- NOTE | 2016-08-24 19:35 | NUR ---
Significant Event: wound vac to l) knee, kyle dressing in place. received tylenol 2 tabs last at 1030, refused 1700 dose of tylenol. patient very restless, attempting to get out of bed, Dr. Edmonds notified, suggested to try po seroquel, patient spit out seroquel. Dr. Edmonds in room and order received for im haldol, which was given at 1820. accuchecks 143, 177 and 159. betadine applied to r) foot toes and heel, r) foot drop boot in place. repositioned frequently, open area to coccyx, ointment applied. patient had large bm, stool sample sent to lab for c-diff. Follow up:
[2016-08-25 03:22] LABS: BASOPHIL % 0.4 %; EOSINOPHIL # 0.3 K/uL (0.0-0.5); EOSINOPHIL % 2.8 %; HEMATOCRIT 32.5 % (33.0-50.0); HEMOGLOBIN 10.1 g/dL (11.0-16.0); IMMATURE GRANULOCYTE # 0.1 K/uL (0.0-0.3); IMMATURE GRANULOCYTE % 0.5 %; LYMPHOCYTE # 1.6 K/uL (0.8-4.0); LYMPHOCYTE % 14.8 %; MCHC 31.1 gm/dL (32.0-36.5); MCV 86.9 fl (83.0-98.0); MONOCYTE # 0.9 K/uL (0.0-1.0); MONOCYTE % 8.3 %; MPV 9.7 fl (9.4-12.4); NEUTROPHIL # (ANC) 8.1 K/uL (1.4-9.0); NEUTROPHIL % 73.2 %; NRBC % 0 /100WBC (0-0.00); PLATELET COUNT 317 K/uL (150-450); RBC 3.74 M/uL (3.50-5.50); RDW-CV 15.4 % (11.9-14.6); WBC 11.1 K/uL (4.0-11.0)
[2016-08-25 03:31] LABS: INR - (THERAPEUTIC) 1.53 (0.92-1.07); PROTIME 16.1 SECONDS (9.8-11.4)
--- NOTE | 2016-08-25 05:51 | NUR ---
Significant Event: NO TELE PER ORDERS. VSS. RA. PT COMBATIVE/RESTLESS/PULLING AT WOUND VAC AT BEGINNING OF SHIFT, HADOL 2MG GIVEN X 2. CONT TO BE AGITATED. MIN STIMULATION. MEDS CRUSHED. PUREE DIET. DRESSING TO L LE WOUND VAC INTACT. Follow up: PLACMENT, [facility] STATUS
--- NOTE | 2016-08-25 11:35 | NUR ---
A - NUT F/U. STAGE III SACRAL PU. WOUND VAC TO L) STUMP. LABS: ACCUCHECK WNL-REAS, GLU 113, ALB 2.0, WBC 11.1. MEDS: SEROQUEL, LACTINEX, AUGMENTIN, BOWEL/NAUSEA, SSI, FEOSOL, PROTONIX, D5NS. DIET: PUREED. INTAKE: BITES-50% GLUCERNA TID, RAMON BID. NEEDS: [id number] KCAL, 79-92 G PRO D - INADEQUATE NUTRIENT INTAKE R/T DECREASED APPETITE AEB INTAKE RECORD. UNABLE TO MEET NEEDS ORALLY. I - GOAL FOR INCREASED NUTRIENT INTAKE. TF RECS PROVIDES ON 08/21 AND 08/23 - WOULD BENEFIT FROM TF. WILL CONTINUE CURRENT SUPPLEMENTS. M/E - WILL MONITOR INTAKE. F/U IN 3-5 DAYS.
--- NOTE | 2016-08-25 12:27 | NUR ---
SPeech Tx Note: Attempted two times to see pt. Pt was sleeping on the first attempt. On the second attempt, pt's RN reported that they had tried to feed pt his lunch but he spit it out. Pt's RN recommended that speech Txist not initiate Tx at this time. Will f/u 1-2 more times before pt is transferred. Gretel Agarwal M.A. [employer]
--- NOTE | 2016-08-25 17:09 | NUR ---
Significant Event: Patient alert, confused. Refused afternoon meds. Wound vac to lt stump. WOC changed wound vac today. Open area to coccyx. Incontinent. Bites for meals. AFO boot to rt foot. Follow up:
--- NOTE | 2016-08-26 05:04 | NUR ---
Significant Event: Pt alert to self only. Will become combative and strike out. Will refuse vital signs and will pull BP cuff off. Unable to get pulse ox reading with monitor. Have been using the portable one for checking. No monitors. Wound vac to LLE. Pt will mess with everything, try to keep stuff tucked and hidden. Found putting briefs on tight stops pt from pulling penis out an urinating everywhere. All meds crushed in applesauce, if he'll take them. Pt does sound "junky" throughout. Only gave scheduled tylenol for pain control. Does have PRN seroquel if needed. Follow up: Continue plan of care.
[2016-08-26 06:02] LABS: BASOPHIL % 0.3 %; EOSINOPHIL % 0.2 %; HEMATOCRIT 32.6 % (33.0-50.0); HEMOGLOBIN 10.1 g/dL (11.0-16.0); IMMATURE GRANULOCYTE # 0.1 K/uL (0.0-0.3); IMMATURE GRANULOCYTE % 0.4 %; LYMPHOCYTE # 1.3 K/uL (0.8-4.0); LYMPHOCYTE % 11.1 %; MCH 26.6 pg (27.0-34.0); MONOCYTE # 1.5 K/uL (0.0-1.0); MONOCYTE % 13.2 %; MPV 9.5 fl (9.4-12.4); NEUTROPHIL # (ANC) 8.7 K/uL (1.4-9.0); NEUTROPHIL % 74.8 %; NRBC % 0 /100WBC (0-0.00); PLATELET COUNT 362 K/uL (150-450); RBC 3.79 M/uL (3.50-5.50); RDW-CV 15.8 % (11.9-14.6); WBC 11.6 K/uL (4.0-11.0)
[2016-08-26 06:17] LABS: INR - (THERAPEUTIC) 2.02 (0.92-1.07); PROTIME 21.4 SECONDS (9.8-11.4)
--- NOTE | 2016-08-26 17:49 | NUR ---
Significant Event: D/O TO TIME AND PLACE. AGITATED AND COMBATIVE AT TIMES. SLEPT MOST OF SHIFT. INCONTINENT OF URINE. BRIEF ON. RIGHT UPPER FA MIDLINE SL'D. LEFT AKA WITH WOUND VAC INTACT, NO COMPLICATIONS. 1:1 FEEDER. NEEDS GOOD ORAL CARES. REFUSES MEDS AT TIMES. CRUSHED PILLS AND GIVEN IN APPLESAUCE. Follow up:
[2016-08-27 04:38] LABS: BASOPHIL % 0.3 %; EOSINOPHIL # 0.1 K/uL (0.0-0.5); EOSINOPHIL % 0.7 %; HEMATOCRIT 30.9 % (33.0-50.0); HEMOGLOBIN 9.4 g/dL (11.0-16.0); IMMATURE GRANULOCYTE # 0.1 K/uL (0.0-0.3); IMMATURE GRANULOCYTE % 0.7 %; LYMPHOCYTE # 1.2 K/uL (0.8-4.0); MCH 26.5 pg (27.0-34.0); MCHC 30.4 gm/dL (32.0-36.5); MONOCYTE # 0.9 K/uL (0.0-1.0); MONOCYTE % 9.1 %; MPV 9.7 fl (9.4-12.4); NEUTROPHIL # (ANC) 7.9 K/uL (1.4-9.0); NEUTROPHIL % 77.2 %; NRBC % 0 /100WBC (0-0.00); PLATELET COUNT 321 K/uL (150-450); RBC 3.55 M/uL (3.50-5.50); RDW-CV 15.7 % (11.9-14.6); WBC 10.3 K/uL (4.0-11.0)
[2016-08-27 04:49] LABS: INR - (THERAPEUTIC) 2.33 (0.92-1.07); PROTIME 24.7 SECONDS (9.8-11.4)
[2016-08-27 04:56] LABS: ANION GAP 13.7 (10.0-19.0); BLOOD UREA NITROGEN 21 mg/dL (6-24); CALCIUM 8.4 mg/dL (8.5-10.5); CHLORIDE 109 mMol/L (96-110); CO2 28 mMol/L (22-32); CREATININE 0.9 mg/dL (0.6-1.3); ESTIMATED GFR (MDRD EQUATION) > 60; POTASSIUM 3.7 mMol/L (3.7-5.1)
[2016-08-27 04:57] LABS: SODIUM 147 mMol/L (135-145)
--- NOTE | 2016-08-27 04:57 | NUR ---
Significant Event: Pt started the night ok with sleeping; however, since around 0130, pt has been screaming out non-stop. Was able to get 0500 tylenol dosage in with vanilla pudding. Vital signs remain stable. Have done oral cares many times, pt will spit out. Pt had 2 large BM's yesterday, running. Pt still q2 turn, but will slide all over the place. Pt did remove CHAPINCITO wrap yesterday, did replace it. Still very little drainage out of wound vac. Pt has been yelling non-stop. IV remains patent. Follow up: Continue plan of care. Plan to d/c Sunday.
--- NOTE | 2016-08-27 18:50 | NUR ---
Significant Event: D/O TO TIME & PLACE, RESTLESS, AGITATED, COMBATIVE, UNCOOPERATIVE. PULLS OFF BRIEF. PULLS AT WOUND VAC AND STUMP DRESSING. INAPPROPRIATE WITH STAFF. INCONTINENT OF URINE. MEDS CRUSHED AND MIXED IN ENSURE. RIGHT UPPER FA MIDLINE, CURRENTLY INFUSING LR @ 150 ML/HR X1 LITER. BED ALARM ON. Follow up: MAY TRANFER TO [facility] WHEN BED AVAILABLE.
--- NOTE | 2016-08-28 04:26 | NUR ---
Significant Event: Pt disoriented to time and place. Pt was very restless and agitated all night. Due to pulling of lines, mitten restraint order placed. Pt still continued to try to hit with mittens on. Vital signs stable. Took BP on RLE d/t pt moving his arm all around when trying to get a BP reading. Need to crush meds and will take them in ensure. Pt did receive bath early this AM since he was awake. Very little urine output; only had to change brief once. Bladder scanned and called Hospitalist for order, but did not want to give straight cath order. Continue to monitor UO and possible need for straight cath. Follow up: Possible d/c restraint order during the day if pt leaves lines alone. Transfer to [facility] when bed available.
[2016-08-28 11:58] LABS: BASOPHIL % 0.2 %; EOSINOPHIL # 0.2 K/uL (0.0-0.5); EOSINOPHIL % 2.3 %; HEMATOCRIT 29.5 % (33.0-50.0); IMMATURE GRANULOCYTE % 0.3 %; LYMPHOCYTE # 1.2 K/uL (0.8-4.0); LYMPHOCYTE % 13.2 %; MCH 26.5 pg (27.0-34.0); MCHC 30.5 gm/dL (32.0-36.5); MONOCYTE # 0.6 K/uL (0.0-1.0); MONOCYTE % 6.4 %; MPV 9.4 fl (9.4-12.4); NEUTROPHIL # (ANC) 6.9 K/uL (1.4-9.0); NEUTROPHIL % 77.6 %; NRBC % 0 /100WBC (0-0.00); PLATELET COUNT 336 K/uL (150-450); RBC 3.39 M/uL (3.50-5.50); RDW-CV 15.7 % (11.9-14.6); WBC 8.8 K/uL (4.0-11.0)
[2016-08-28 12:07] LABS: INR - (THERAPEUTIC) 1.65 (0.92-1.07); PROTIME 17.4 SECONDS (9.8-11.4)
[2016-08-28 12:10] LABS: ANION GAP 9.9 (10.0-19.0); BLOOD UREA NITROGEN 19 mg/dL (6-24); CALCIUM 8.4 mg/dL (8.5-10.5); CHLORIDE 113 mMol/L (96-110); CO2 26 mMol/L (22-32); CREATININE 0.7 mg/dL (0.6-1.3); ESTIMATED GFR (MDRD EQUATION) > 60; POTASSIUM 3.9 mMol/L (3.7-5.1); SODIUM 145 mMol/L (135-145)
--- NOTE | 2016-08-28 16:06 | NUR ---
Significant Event: VSS. SLEEPY ON/OFF. PYSCH CONSULT, PT WAS DROWSY AT THE TIME. SEROQUEL DOSE ADJUSTED. DENIES PAIN. RIGHT MIDLINE SL'D. MITTEN RESTRAINTS DC'D @ 0930. LEFT AKA WOUND VAC INTACT, MINIMAL DRAINAGE NOTED. PLAN FOR WOUND VAC CHANGE TOMORROW TO TEACH PA ABOUT WOUND VAC. OPEN PRESSURE ULCER TO COCCYX, TURN Q2H, ALOE VESTA APPLIED. Follow up: POSSIBLY TO [facility] TOMORROW.
--- NOTE | 2016-08-28 16:15 | NUR ---
Spoke with [facility] and with patient's nurse. Patient was in restraints last night but taken off this a.m. Janette had patient this w/e also and said the only time in restraints was last night. Call from Nadeen COPPOLA at [facility] and updated her and answered her questions. She says they have bad nights with him also where he doesn't sleep. She says to fax info for her to review with the team. Update faxed to Nadeen at [facility]. Call from Gabi Carver at [facility] this a.m. and told her I had talked to Nadeen and faxed update. Call from Alivia [facility] this afternoon and updated her. She says they will accept patient back tomorrow. They plan to be here to pick him up at 0930. Called and updated his nurse Janette and she says Leticia and Dr. Wright are meeting together with another family. Called and updated [facility]icia and she will update Dr. Wright that [facility] will accept him back tomorrow at 0930. Will follow.
--- NOTE | 2016-08-29 05:57 | NUR ---
Significant Event: Patient is disorientated to time and place. Patient is very restless and agitated at times. VSS on RA. Takes meds crushed and in ensure. Patient incontinent of urine. L) AKA wound vac intact. Plan to change today to teach [facility]dc about wound vac. Open pressure ulcer to coccyx. Aloe vesta applied. IV to upper R) arm. Cobanded. Follow up: Possible discharge to [facility] today.
[2016-08-29 06:06] LABS: BASOPHIL % 0.5 %; EOSINOPHIL # 0.3 K/uL (0.0-0.5); EOSINOPHIL % 3.6 %; HEMOGLOBIN 9.2 g/dL (11.0-16.0); IMMATURE GRANULOCYTE % 0.4 %; LYMPHOCYTE # 1.4 K/uL (0.8-4.0); LYMPHOCYTE % 19.6 %; MCH 26.5 pg (27.0-34.0); MCHC 30.7 gm/dL (32.0-36.5); MCV 86.5 fl (83.0-98.0); MONOCYTE # 0.5 K/uL (0.0-1.0); MONOCYTE % 6.8 %; MPV 9.5 fl (9.4-12.4); NEUTROPHIL # (ANC) 5.1 K/uL (1.4-9.0); NEUTROPHIL % 69.1 %; NRBC % 0 /100WBC (0-0.00); PLATELET COUNT 323 K/uL (150-450); RBC 3.47 M/uL (3.50-5.50); RDW-CV 15.7 % (11.9-14.6); WBC 7.3 K/uL (4.0-11.0)
[2016-08-29 06:24] LABS: ANION GAP 9.8 (10.0-19.0); BLOOD UREA NITROGEN 17 mg/dL (6-24); CALCIUM 8.4 mg/dL (8.5-10.5); CHLORIDE 112 mMol/L (96-110); CO2 28 mMol/L (22-32); CREATININE 0.8 mg/dL (0.6-1.3); ESTIMATED GFR (MDRD EQUATION) > 60; POTASSIUM 3.8 mMol/L (3.7-5.1)
[2016-08-29 06:27] LABS: SODIUM 146 mMol/L (135-145)
[2016-08-29 06:28] LABS: PROTIME 21.4 SECONDS (9.8-11.4)
[2016-08-29 06:30] LABS: INR - (THERAPEUTIC) 2.02 (0.92-1.07)
--- NOTE | 2016-08-29 10:15 | NUR ---
Patient transferring to [facility]. Their staff are here to transport him and Xena Paris is here and worked with [facility] and got report from his nurse. Orders faxed to Nadeen at [facility]. His nurse has spoken with [facility]. Patient transferring via PA van to [facility] this morning.
--- NOTE | 2016-08-29 19:02 | NUR ---
Significant Event: Alert, oriented to self only; cooperative with cares. VS, SBP 153, HR 96 on room air. No s/s of pain. WOC nurse up to change wound vac et demonstrate to residential staff. To w/c per mechanical lift. Dimissed to front lobby per w/c accompanied by residential staff. Follow up:
== END 2016-08-29 10:40 | disposition other institution (70) | DRG 474 ==
LOC: GMED 16:15 → GPCU 17:23 → GMSU 17:23 → GPCU 08-17 16:50
PROVIDERS: Emergency Medicine; Internal Medicine; Nurse Practitioner Family; ADMIT Surgery Vascular Surgery
PROC: 0Y680ZZ Detachment at Left Femoral Region, Open Approach (ICD-10-PCS; principal; 2016-08-17)
DX: T87.81 Dehiscence of amputation stump (principal); E43 Unspecified severe protein-calorie malnutrition; G93.40 Encephalopathy, unspecified; L89.153 Pressure ulcer of sacral region, stage 3; L03.90 Cellulitis, unspecified; I48.91 Unspecified atrial fibrillation; C61 Malignant neoplasm of prostate; I11.9 Hypertensive heart disease without heart failure; F03.90 Unspecified dementia, unspecified severity, without behavioral disturbance, psychotic disturbance, mood disturbance, and anxiety; Z51.5 Encounter for palliative care; E03.9 Hypothyroidism, unspecified; E11.9 Type 2 diabetes mellitus without complications; I25.10 Atherosclerotic heart disease of native coronary artery without angina pectoris; I73.9 Peripheral vascular disease, unspecified; R41.0 Disorientation, unspecified; Z66 Do not resuscitate; Z74.01 Bed confinement status; Z91.19 Patient's noncompliance with other medical treatment and regimen; Z79.01 Long term (current) use of anticoagulants; Z86.718 Personal history of other venous thrombosis and embolism; Z95.1 Presence of aortocoronary bypass graft; Z86.73 Personal history of transient ischemic attack (TIA), and cerebral infarction without residual deficits
CPT/HCPCS: A9270; C1751; J0690; J1160; J1630; J2060; J2270; J2543; J3010; J3370; J3475; J3480; J7030; J7040; J7042; J7050; J7060; J7120